=== PATIENT | male | born 1945 | race African-American/Black ===

== ENCOUNTER 2017-11-23 12:48 | Inpatient (IN) | payer MEDICARE ==
[2017-11-23] MEDS ORDERED: NORMAL SALINE 1000 ML 1,000 ML IV ONE (12:54)
[2017-11-23] MEDS ORDERED: LIDOCAINE 2% URO-JET 5 ML KIT MM ONE (12:54)
--- NOTE | 2017-11-23 12:59 | ER Document Report ---
ED General - General Stated Complaint: DIZZINESS Time Seen by Provider: 11/23/17 12:53 TRAVEL OUTSIDE OF THE [place] IN LAST 30 DAYS: No - HPI Patient complains to provider of: fever, dizzy Notes: 71-year-old male with lengthy medical history including chronic trach presents with increasing weakness fatigue fever and dizziness. Family concerned he has been coughing up a great deal of sputum as well. Patient has history of pneumonia in the past. Patient also history of urinary tract infections. Patient denies overt chest pain or abdominal pain denies nausea vomiting. Denies productive cough, positive for dysuria. - Related Data Allergies/Adverse Reactions: No Known Allergies Allergy (Unverified 06/14/15 12:22) Past Medical History - Social History Smoking Status: Unknown if Ever Smoked Family History: Reviewed & Not Pertinent - Past Medical History Cardiac Medical History: Reports: Hx Hypercholesterolemia, Hx Hypertension, Hx Pulmonary Embolism Endocrine Medical History: Reports: Hx Diabetes Mellitus Type 2 Renal/ Medical History: Reports: Hx Kidney Stones Past Surgical History: Reports: Hx Kidney (Renal Surgery), Hx Orthopedic Surgery , Hx Thyroid Surgery - thyroidectomy - Immunizations Hx Diphtheria, Pertussis, Tetanus Vaccination: Yes Hx Pneumococcal Vaccination: 03/27/13 Review of Systems - Review of Systems Notes: REVIEW OF SYSTEMS: CONSTITUTIONAL: +fevers, -chills EENT: -eye pain, -difficulty swallowing, -nasal congestion CARDIOVASCULAR: -chest pain, -syncope. RESPIRATORY: -cough, -SOB GASTROINTESTINAL: -abdominal pain, -nausea, -vomiting, -diarrhea GENITOURINARY: +dysuria, -hematuria MUSCULOSKELETAL: -back pain, -neck pain SKIN: -rash or skin lesions. HEMATOLOGIC: -easy bruising or bleeding. LYMPHATIC: -swollen, enlarged glands. NEUROLOGICAL: -altered mental status or loss of consciousness, -headache, - neurologic symptoms PSYCHIATRIC: -anxiety, -depression. ALL OTHER SYSTEMS REVIEWED AND NEGATIVE. Physical Exam - Vital signs Vitals: Temp 101.4 F H 11/23/17 12:48 - Notes Notes: PHYSICAL EXAMINATION: GENERAL: Well-appearing, well-nourished and in no acute distress. HEAD: Atraumatic, normocephalic. EYES: Pupils equal round and reactive to light, extraocular movements intact, sclera anicteric, conjunctiva are normal. ENT: nares patent, oropharynx clear without exudates. Moist mucous membranes. NECK: Normal range of motion, supple without lymphadenopathy, chronic trach in place LUNGS: Rhonchi bilateral lung pappas HEART: tachycardia without murmurs ABDOMEN: Soft, nontender, normoactive bowel sounds. No guarding, no rebound. No masses appreciated. EXTREMITIES: Normal range of motion, no pitting or edema. No cyanosis. NEUROLOGICAL: Cranial nerves grossly intact. Normal speech, normal gait. Normal sensory and motor exams. PSYCH: Normal mood, normal affect. SKIN: Warm, Dry, normal turgor, no rashes or lesions noted. Course - Re-evaluation Re-evalutation: 11/23/17 12:59 Patient given Tylenol approximately 2 hours ago. Given 1 g by fire rescue. Patient was initially febrile 102. Patient Keller UTI, leukocytosis, normal lactic acid. 11/23/17 15:20 Patient given 2 L fluid resuscitation feeling greatly improved. Patient's blood pressure stable within normal patient's urine found to be contaminated. Will be sent for urine culture. In the meantime initiate ceftriaxone therapy. Patient will be admitted to the hospital for close monitoring further management of his sepsis secondary to urinary tract infection. - Vital Signs Vital signs: Temp Pulse Resp BP Pulse Ox 101.4 F H 42 H 118/62 91 L 11/23/17 12:48 11/23/17 13:01 11/23/17 13:01 11/23/17 13:01 - Laboratory Result Diagrams: 11/23/17 13:09 11/23/17 13:09 Laboratory results interpreted by me: 11/23/17 11/23/17 11/23/17 13:09 13:09 13:09 WBC 14.8 H RBC 4.01 L Hgb 11.7 L Hct 35.1 L Seg Neuts % (Manual) 88 H Lymphocytes % (Manual) 3 L Abs Neuts (Manual) 13.0 H Abs Lymphs (Manual) 0.4 L PT 17.1 H Sodium 145.6 H Potassium 3.5 L Chloride 108 H Creatinine 1.61 H Est GFR ( Amer) 51 L Est GFR (Non-Af Amer) 43 L POC Glucose ALT 13 L Urine Protein Urine Ketones Urine Blood Urine Urobilinogen Ur Leukocyte Esterase 11/23/17 11/23/17 14:08 14:35 WBC RBC Hgb Hct Seg Neuts % (Manual) Lymphocytes % (Manual) Abs Neuts (Manual) Abs Lymphs (Manual) PT Sodium Potassium Chloride Creatinine Est GFR ( Amer) Est GFR (Non-Af Amer) POC Glucose 139 H ALT Urine Protein 100 H Urine Ketones 20 H Urine Blood MODERATE H Urine Urobilinogen 2.0 H Ur Leukocyte Esterase LARGE H Discharge - Discharge Clinical Impression: Fever Qualifiers: Fever type: unspecified Qualified Code(s): R50.9 - Fever, unspecified Sepsis Qualifiers: Sepsis type: sepsis due to unspecified organism Qualified Code(s): A41.9 - Sepsis, unspecified organism UTI (urinary tract infection) Qualifiers: Urinary tract infection type: site unspecified Hematuria presence: with hematuria Qualified Code(s): N39.0 - Urinary tract infection, site not specified ; R31.9 - Hematuria, unspecified; R31.9 - Hematuria, unspecified Condition: Stable Disposition: ADMITTED INPATIENT Admitting Provider: Hospitalist - [facility] Unit Admitted: Medical Floor Referrals: AMINATA ROMAN MD [Primary Care Provider] - Follow up as needed
[2017-11-23 13:43] LABS: HEMATOCRIT 35.1 % (37.9-51.0); HEMOGLOBIN 11.7 g/dL (13.5-17.0); MEAN CORPUSCULAR HEMOGLOBIN 29.1 pg (27.0-33.4); MEAN CORPUSCULAR HGB CONC 33.3 g/dL (32.0-36.0); MEAN CORPUSCULAR VOLUME 88 fl (80-97); PLATELET COUNT 239 10^3/uL (150-450); RED BLOOD COUNT 4.01 10^6/uL (4.35-5.55); RED CELL DISTRIBUTION WIDTH 13.9 % (11.5-14.0); VENOUS BLOOD BASE EXCESS 0.4 mmol/L; VENOUS BLOOD HCO3 25.6 mmol/L (20-32); VENOUS BLOOD PCO2 43.6 mmHg (35-63); VENOUS BLOOD PH 7.39 (7.30-7.42); WHITE BLOOD COUNT 14.8 10^3/uL (4.0-10.5)
[2017-11-23 13:47] LABS: INTERNATIONAL RATION (INR) 1.33; PROTHROMBIN TIME 17.1 SEC (11.4-15.4)
--- NOTE | 2017-11-23 14:04 | RADIOLOGY REPORT (SQ) ---
EXAM DESCRIPTION: CHEST SINGLE VIEW COMPLETED DATE/TIME: 11/23/2017 1:55 pm REASON FOR STUDY: fever COMPARISON: 10/12/2014. EXAM PARAMETERS: NUMBER OF VIEWS: One view. TECHNIQUE: Single frontal radiographic view of the chest acquired. RADIATION DOSE: NA LIMITATIONS: None. FINDINGS: LUNGS AND PLEURA: No opacities, masses or pneumothorax. Stable mild elevation of the righ t hemidiaphragm. No pleural effusion. MEDIASTINUM AND HILAR STRUCTURES: No masses. Contour normal. HEART AND VASCULAR STRUCTURES: Heart normal in size. Normal vasculature. BONES: No acute findings. HARDWARE: Tracheostomy tube. OTHER: No other significant finding. IMPRESSION: NO ACUTE RADIOGRAPHIC FINDING IN THE CHEST. TECHNICAL DOCUMENTATION: JOB ID: [id number] [employer]- All Rights Reserved Reading location - IP/workstation name: [email or web address]
[2017-11-23 14:07] LABS: ABSOLUTE LYMPHOCYTES# (MANUAL) 0.4 10^3/uL (0.5-4.7); ABSOLUTE MONOCYTES # (MANUAL) 1.3 10^3/uL (0.1-1.4); BASOPHILS % (MANUAL) 0 % (0-2); EOSINOPHILS % (MANUAL) 0 % (0-6); LYMPHOCYTES % (MANUAL) 3 % (13-45); MONOCYTES % (MANUAL) 9 % (3-13); PLATELET COMMENT ADEQUATE; RBC MORPHOLOGY COMMENT NORMO-CYTIC/CHROMIC; SEGMENTED NEUTROPHILS % (MAN) 88 % (42-78); TOTAL CELLS COUNTED 100
[2017-11-23 14:11] LABS: ALANINE AMINOTRANSFERASE 13 U/L (21-72); ALBUMIN 3.8 g/dL (3.5-5.0); ALKALINE PHOSPHATASE 85 U/L (38-126); ANION GAP 14 (5-19); ASPARTATE AMINO TRANSFERASE 27 U/L (17-59); BILIRUBIN,DIRECT 0.4 mg/dL (0.0-0.4); BLOOD UREA NITROGEN 15 mg/dL (7-20); CALCIUM 9.2 mg/dL (8.4-10.2); CARBON DIOXIDE 24 mmol/L (22-30); CHLORIDE 108 mmol/L (98-107); GLUCOSE 110 mg/dL (75-110); POTASSIUM 3.5 mmol/L (3.6-5.0); SODIUM 145.6 mmol/L (137-145); TOTAL PROTEIN 7.5 g/dL (6.3-8.2)
--- NOTE | 2017-11-23 14:17 | EKG REPORT ---
SEVERITY:- ABNORMAL ECG - SINUS RHYTHM LEFT AXIS DEVIATION ANTERIOR INFARCT, AGE INDETERMINATE NONSPECIFIC T ABNORMALITIES, INFERIOR LEADS : Confirmed by: Silver Hare MD 23-Nov-2017 14:17:00
[2017-11-23] MEDS ORDERED: CEFTRIAXONE 1 GM/D5W RTU 50 ML IV ONE ×2 (14:44→15:12)
[2017-11-23 15:10] LABS: AMORPHOUS SEDIMENT,URINE TRACE /HPF; APPEARANCE,URINE CLOUDY; BILIRUBIN,URINE NEGATIVE (NEGATIVE); COLOR,URINE AMBER; GLUCOSE, URINE NEGATIVE (NEGATIVE); KETONES,URINE 20 mg/dL (NEGATIVE); LEUKOCYTE ESTERASE,URINE LARGE (NEGATIVE); NITRITE,URINE NEGATIVE (NEGATIVE); PROTEIN,URINE 100 mg/dL (NEGATIVE)
[2017-11-23] MEDS ORDERED: CEFTRIAXONE INJ 1000 MG VIAL IV ONE ×2 (15:15→15:30)
[2017-11-23] MEDS ORDERED: ONDANSETRON HCL INJ/PF 4 MG/2 ML SDV IV PRN (15:30)
[2017-11-23] MEDS ORDERED: NORMAL SALINE 1000 ML 1,000 ML IV PRN (15:31)
[2017-11-23] MEDS ORDERED: PROMETHAZINE HCL INJ 25 MG/1 ML VIAL IV PRN (15:39)
[2017-11-23] MEDS ORDERED: MAG HYDROX/AL HYDROX/SIMETH SUSP 30 ML UDCUP PO PRN (15:39)
[2017-11-23] MEDS ORDERED: MAGNESIUM HYDROXIDE SUSP 30 ML UDCUP PO PRN (15:39)
[2017-11-23] MEDS ORDERED: LEVALBUTEROL HCL NEB 1.25 MG/3 ML AMPUL NEB PRN (16:24)
[2017-11-23] MEDS: ACETAMINOPHEN 325 MG TABLET PO PRN ×2 (18:35→23:17)
[2017-11-23] MEDS: NORMAL SALINE 1000 ML 1,000 ML IV PRN (19:02)
[2017-11-23] MEDS ORDERED: ACETAMINOPHEN 650 MG SUPP.RECT PR PRN (20:28)
--- NOTE | 2017-11-23 20:39 | PDOC H&P ---
History of Present Illness Admission Date/PCP: 11/23/17 15:20 Patient complains of: Fever History of Present Illness: ABDELRAHMAN ESPAÑA is a 71 year old male with a past medical history significant for MS, COPD, chronic tracheostomy (utilizes ventilator on SIMV when sleeping and room air otherwise), RUBINA, chronic kidney disease, atrial fibrillation, hypertension, hyperlipidemia, and DM 2 who presented to the emergency department today with a complaint of generalized malaise, increased forgetfulness/slight confusion, fever, and dysuria. Evaluation in the emergency department revealed a fever (101.4), tachycardia ( 112), tachypnea (34), normal chest x-ray, benign EKG, leukocytosis (WBCs 14.8 with bandemia), and urinalysis grossly positive for urinary tract infection. Chemistry revealed mild hypernatremia, hypokalemia, and chronic kidney disease at his baseline creatinine. He is referred to the hospitalist service for admission and management of sepsis secondary to urinary tract infection. Past Medical History Cardiac Medical History: Reports: Hyperlipidema, Hypertension, Pulmonary Embolism Pulmonary Medical History: Reports: Chronic Obstructive Pulmonary Disease (COPD) EENT Medical History: Reports: None Neurological Medical History: Reports: Multiple Sclerosis Endocrine Medical History: Reports: Diabetes Mellitus Type 2 Renal/ Medical History: Reports: Chronic Kidney Disease Malignancy Medical History: Reports: None GI Medical History: Reports: None Musculoskeltal Medical History: Reports: None Skin Medical History: Reports: None Psychiatric Medical History: Reports: None Traumatic Medical History: Reports: None Hematology: Reports: Anemia Infectious Medical History: Reports: None Past Surgical History Past Surgical History: Reports: Orthopedic Surgery, Other - Tracheostomy Social History Information Source: Patient, Relative Lives with: Family Smoking Status: Unknown if Ever Smoked Frequency of Alcohol Use: None Hx Recreational Drug Use: No Hx Prescription Drug Abuse: No - Advance Directive Resuscitation Status: Full Code Family History Family History: Reviewed & Not Pertinent Parental Family History Reviewed: Yes Children Family History Reviewed: Yes Sibling(s) Family History Reviewed.: Yes Medication/Allergy Allergies/Adverse Reactions: No Known Allergies Allergy (Unverified 06/14/15 12:22) Review of Systems Constitutional: PRESENT: chills, fatigue, fever(s). ABSENT: headache(s), weight gain, weight loss Eyes: ABSENT: visual disturbances Ears: ABSENT: hearing changes Cardiovascular: ABSENT: chest pain, dyspnea on exertion, edema, orthropnea, palpitations Respiratory: PRESENT: cough, sputum. ABSENT: hemoptysis Gastrointestinal: ABSENT: abdominal pain, constipation, diarrhea, hematemesis, hematochezia, nausea, vomiting Genitourinary: PRESENT: dysuria. ABSENT: hematuria Musculoskeletal: ABSENT: joint swelling Integumentary: ABSENT: rash, wounds Neurological: PRESENT: confusion, weakness. ABSENT: abnormal gait, abnormal speech, dizziness, focal weakness, syncope Psychiatric: ABSENT: anxiety, depression, homidical ideation, suicidal ideation Endocrine: ABSENT: cold intolerance, heat intolerance, polydipsia, polyuria Hematologic/Lymphatic: ABSENT: easy bleeding, easy bruising Physical Exam Vital Signs: Temp Pulse Resp BP Pulse Ox 102.8 F H 112 H 20 164/68 H 94 11/23/17 19:16 11/23/17 19:16 11/23/17 19:16 11/23/17 19:16 11/23/17 19:16 Intake & Output 11/22/17 11/23/17 11/24/17 06:59 06:59 06:59 Intake Total 1000 Balance 1000 Weight 84.7 kg General appearance: PRESENT: cooperative, mild distress - Acutely ill-appearing , well-developed, well-nourished - Overweight Head exam: PRESENT: atraumatic, normocephalic Eye exam: PRESENT: conjunctiva pink, EOMI, PERRLA. ABSENT: scleral icterus Ear exam: PRESENT: normal external ear exam Mouth exam: PRESENT: dry mucosa, tongue midline Teeth exam: PRESENT: poor dentation Neck exam: PRESENT: tracheostomy. ABSENT: carotid bruit, JVD, lymphadenopathy, thyromegaly Respiratory exam: PRESENT: rhonchi, symmetrical, tachypnea, other - Per patient and family; patient is at baseline respiratory status -current cough and sputum production is his norm. ABSENT: rales, wheezes Cardiovascular exam: PRESENT: RRR, +S1, +S2, tachycardia. ABSENT: diastolic murmur, rubs, systolic murmur Pulses: PRESENT: normal dorsalis pedis pul Vascular exam: PRESENT: normal capillary refill GI/Abdominal exam: PRESENT: normal bowel sounds, soft. ABSENT: distended, guarding, mass, organolmegaly, rebound, tenderness Rectal exam: PRESENT: deferred Extremities exam: PRESENT: full ROM. ABSENT: calf tenderness, clubbing, pedal edema Neurological exam: PRESENT: alert, awake, oriented to person, oriented to place , oriented to time, oriented to situation, CN II-XII grossly intact, other - Fatigued, forgetful. ABSENT: motor sensory deficit Psychiatric exam: PRESENT: appropriate affect, normal mood. ABSENT: homicidal ideation, suicidal ideation Skin exam: PRESENT: dry, intact, warm. ABSENT: cyanosis, rash Results Impressions: Chest X-Ray 11/23/17 12:55 IMPRESSION: NO ACUTE RADIOGRAPHIC FINDING IN THE CHEST. Assessment & Plan - Diagnosis (1) Sepsis Qualifiers: Sepsis type: sepsis due to unspecified organism Qualified Code(s): A41.9 - Sepsis, unspecified organism Is this a current diagnosis for this admission?: Yes Plan: Sepsis due to UTI, present on admission, evidenced by fever, tachycardia, tachypnea, report of increased forgetfulness/weakness per family, and leukocytosis. WBCs are elevated to 14.8 with bandemia. Urinalysis is grossly positive for urinary tract infection. Blood and urine cultures are pending. Chest x-ray is benign. Skin is intact. The patient is admitted to [facility] on continuous cardiac telemetry. He has received IV fluid boluses by the ED provider and is continued on maintenance fluids. He is empirically placed on IV Rocephin for urinary tract infection. Will adjust antibiotics as urine cultures result. (2) UTI (urinary tract infection) Qualifiers: Urinary tract infection type: site unspecified Hematuria presence: with hematuria Qualified Code(s): N39.0 - Urinary tract infection, site not specified; R31.9 - Hematuria, unspecified; R31.9 - Hematuria, unspecified Is this a current diagnosis for this admission?: Yes Plan: Patient presented with fever, chills, malaise, increased forgetfulness/weakness , and report of dysuria 1-2 days. Urinalysis is positive for protein, ketones, moderate blood, large leuk esterase , WBCs 146, and 3+ bacteria. Urine culture is pending. He is provided maintenance IV fluids and started on IV Rocephin. We will adjust antibiotics as culture and sensitivities result. (3) Chronic respiratory failure Is this a current diagnosis for this admission?: Yes Plan: Although the patient is tachypneic today, I believe this to be related to his fever. He does have coarse lung sounds, but these clear following cough. Chest x-ray is benign. Both the patient and family members report that he appears to be at his baseline respiratory status. Patient's family members report that the patient is ventilator dependent while sleeping. The patient's respiratory company, [employer], was contacted. They confirm that the patient uses SIMV with the following settings : Rate of 12, 500 tidal volume, 15 pressure support, 0 PEEP, oxygen 3 L/min at night only. The patient is placed on scheduled duo nebs with Xopenex as needed. His Mucomyst is continued. We will resume any additional COPD medications once fully reconciled. Ventilator is ordered nightly at the above settings. (4) COPD (chronic obstructive pulmonary disease) Is this a current diagnosis for this admission?: Yes Plan: Without exacerbation. Scheduled and as needed nebulizer treatments are provided. Supplemental oxygen will be provided as needed to maintain oxygen saturations greater than 88%. We will continue the patient's Singulair. Consider Mucinex. We will resume his remaining outpatient medications once fully reconciled. (5) Multiple sclerosis Is this a current diagnosis for this admission?: Yes Plan: Supportive care Fall precautions, every 2 hour turns. PT/OT consultations. - Time Time Spent: 50 to 70 Minutes Medications reviewed and adjusted accordingly: Yes Anticipated discharge: Home Within: within 72 hours - Inpatient Certification Based on my medical assessment, after consideration of the patient's comorbidities, presenting symptoms, or acuity I expect that the services needed warrant INPATIENT care.: Yes I certify that my determination is in accordance with my understanding of Medicare's requirements for reasonable and necessary INPATIENT services [42 CFR 412.3e].: Yes Medical Necessity: Significant Comorbidiites Make Outpatient Treatment Too Risky , Need Close Monitoring Due to Risk of Patient Decompensation, Need For IV Fluids, Need for IV Antibiotics
[2017-11-23] MEDS ORDERED: DEXTROSE 50%-WATER SYRINGE 12.5 GM/25 ML DOSE IV PRN (21:30)
[2017-11-23] MEDS ORDERED: DEXTROSE 50%-WATER SYRINGE 25 GM/50 ML DOSE IV PRN (21:30)
[2017-11-23] MEDS ORDERED: DEXTROSE 40% GEL 15 GM TUBE X 2 PO PRN (21:30)
[2017-11-23] MEDS ORDERED: INSULIN LISPRO 100 UNIT/ML 3 ML VIAL SUBCUT PRN (21:30)
[2017-11-23] MEDS ORDERED: GLUCAGON,HUMAN RECOMB 1 MG INJ IM PRN (21:30)
[2017-11-23] MEDS ORDERED: DEXTROSE 40% GEL 15 GM TUBE PO PRN (21:30)
[2017-11-23] MEDS ORDERED: LACTULOSE SYRUP 20 GM/30 ML UDCUP PO ONE (22:00)
[2017-11-23] MEDS: FAMOTIDINE 20 MG TABLET PO SCH (22:03)
[2017-11-23] MEDS: HEPARIN SOD (PORCINE) 5,000 UNIT/ML 1 ML SYRINGE SUBCUT SCH (22:04)
[2017-11-23] MEDS: IPRATROPIUM/ALBUTEROL 0.5-2.5 MG/3 ML AMPUL NEB SCH (23:55)
[2017-11-24] MEDS: NORMAL SALINE 1000 ML 1,000 ML IV PRN ×3 (03:08→18:52)
[2017-11-24] MEDS: HEPARIN SOD (PORCINE) 5,000 UNIT/ML 1 ML SYRINGE SUBCUT SCH ×2 (05:12→14:10)
[2017-11-24 06:20] LABS: ABSOLUTE BASOPHILS # (AUTO) 0.1 10^3/uL (0.0-0.2); ABSOLUTE LYMPHOCYTES (AUTO) 1.2 10^3/uL (0.5-4.7); ABSOLUTE MONOCYTES (AUTO) 1.8 10^3/uL (0.1-1.4); ABSOLUTE NEUT (AUTO) 13.6 10^3/uL (1.7-8.2); BASOPHILS % (AUTO) 0.6 % (0-2); EOSINOPHILS % (AUTO) 0.2 % (0-6); HEMATOCRIT 34.7 % (37.9-51.0); HEMOGLOBIN 11.4 g/dL (13.5-17.0); LYMPHOCYTES % (AUTO) 7.1 % (13-45); MEAN CORPUSCULAR HEMOGLOBIN 28.9 pg (27.0-33.4); MEAN CORPUSCULAR HGB CONC 32.8 g/dL (32.0-36.0); MEAN CORPUSCULAR VOLUME 88 fl (80-97); MONOCYTES % (AUTO) 10.8 % (3-13); PLATELET COUNT 217 10^3/uL (150-450); RED BLOOD COUNT 3.94 10^6/uL (4.35-5.55); RED CELL DISTRIBUTION WIDTH 13.7 % (11.5-14.0); SEGMENTED NEUTROPHILS % (AUTO) 81.3 % (42-78); TOTAL CELLS COUNTED % (AUTO) 100 %; WHITE BLOOD COUNT 16.7 10^3/uL (4.0-10.5)
[2017-11-24 06:37] LABS: ANION GAP 13 (5-19); BLOOD UREA NITROGEN 13 mg/dL (7-20); CALCIUM 8.3 mg/dL (8.4-10.2); CARBON DIOXIDE 22 mmol/L (22-30); CHLORIDE 111 mmol/L (98-107); GLUCOSE 87 mg/dL (75-110); POTASSIUM 3.4 mmol/L (3.6-5.0); SODIUM 145.7 mmol/L (137-145)
[2017-11-24] MEDS: IPRATROPIUM/ALBUTEROL 0.5-2.5 MG/3 ML AMPUL NEB SCH ×2 (08:30→16:50)
[2017-11-24] MEDS ORDERED: CLOPIDOGREL BISULFATE 75 MG TABLET PO SCH (10:00)
[2017-11-24] MEDS ORDERED: CEFTRIAXONE 1 GM/D5W RTU 50 ML IV SCH (10:00)
[2017-11-24] MEDS: ASPIRIN 81 MG TABLET, CHEWABLE PO SCH (10:48)
[2017-11-24] MEDS: FAMOTIDINE 20 MG TABLET PO SCH ×2 (10:48→21:41)
[2017-11-24] MEDS: MONTELUKAST SODIUM 10 MG TABLET PO SCH (10:48)
[2017-11-24] MEDS: DOCUSATE SODIUM 100 MG CAPSULE PO SCH (10:48)
[2017-11-24] MEDS: CEFTRIAXONE SODIUM 1,000 MG in NORMAL SALINE 50 ML IV SCH (10:48)
[2017-11-24] MEDS: ACETAMINOPHEN 325 MG TABLET PO PRN (12:38)
[2017-11-24] MEDS ORDERED: IBUPROFEN 600 MG TABLET PO PRN (14:59)
[2017-11-24] MEDS ORDERED: GUAIFENESIN SYRP 200 MG/10 ML UDC PO PRN (15:34)
--- NOTE | 2017-11-24 16:29 | PDOC PROGRESS REPORT ---
Subjective Progress Note for:: 11/24/17 Subjective:: The patient is a 71 year old male with a past medical history significant for MS , COPD, chronic tracheostomy (utilizes ventilator on SIMV when sleeping and room air otherwise), RUBINA, chronic kidney disease, atrial fibrillation, hypertension, hyperlipidemia, and DM 2 who was admitted for sepsis secondary to urinary tract infection The patient was seen on morning rounds with his family present. He is found resting in bed comfortably on room air. He tells me he is feeling much better and is hopeful to be discharged to home soon. He does endorse continued fever/ chills, but denies dizziness, headache, chest pain, palpitations, dyspnea, abdominal pain, nausea and vomiting. He continues to have a productive cough, but reports that this is his "normal." He ate breakfast well today and overall is feeling much better. He has no questions or concerns. No concerns per nursing. Reason For Visit: UTI Physical Exam Vital Signs: Temp Pulse Resp BP Pulse Ox 102.4 F H 105 H 20 148/65 H 95 11/24/17 13:26 11/24/17 14:00 11/24/17 11:27 11/24/17 11:27 11/24/17 12:23 Intake & Output 11/23/17 11/24/17 11/25/17 06:59 06:59 06:59 Intake Total 2000 1202 Output Total 300 50 Balance 1700 1152 Weight 86.3 kg General appearance: PRESENT: no acute distress, well-developed, well-nourished - overweight Head exam: PRESENT: atraumatic, normocephalic Eye exam: PRESENT: conjunctiva pink, EOMI, PERRLA. ABSENT: scleral icterus Ear exam: PRESENT: normal external ear exam Mouth exam: PRESENT: moist, tongue midline Neck exam: PRESENT: tracheostomy. ABSENT: carotid bruit, JVD, lymphadenopathy, thyromegaly Respiratory exam: PRESENT: decreased breath sounds - bibasilar, rhonchi, symmetrical, unlabored. ABSENT: rales, wheezes Cardiovascular exam: PRESENT: RRR. ABSENT: diastolic murmur, rubs, systolic murmur Pulses: PRESENT: normal dorsalis pedis pul Vascular exam: PRESENT: normal capillary refill GI/Abdominal exam: PRESENT: normal bowel sounds, soft. ABSENT: distended, guarding, mass, organolmegaly, rebound, tenderness Rectal exam: PRESENT: deferred Extremities exam: PRESENT: full ROM. ABSENT: calf tenderness, clubbing, pedal edema Neurological exam: PRESENT: alert, awake, oriented to person, oriented to place , oriented to time, oriented to situation, CN II-XII grossly intact. ABSENT: motor sensory deficit Psychiatric exam: PRESENT: appropriate affect, normal mood. ABSENT: homicidal ideation, suicidal ideation Skin exam: PRESENT: dry, intact, warm. ABSENT: cyanosis, rash Results Laboratory Results: 11/24/17 05:41 11/24/17 05:41 11/24/17 11/24/17 05:41 05:41 WBC 16.7 H RBC 3.94 L Hgb 11.4 L Hct 34.7 L MCV 88 MCH 28.9 MCHC 32.8 RDW 13.7 Plt Count 217 Seg Neutrophils % 81.3 H Lymphocytes % 7.1 L Monocytes % 10.8 Eosinophils % 0.2 Basophils % 0.6 Absolute Neutrophils 13.6 H Absolute Lymphocytes 1.2 Absolute Monocytes 1.8 H Absolute Eosinophils 0.0 Absolute Basophils 0.1 Sodium 145.7 H Potassium 3.4 L Chloride 111 H Carbon Dioxide 22 Anion Gap 13 BUN 13 Creatinine 1.55 H Est GFR ( Amer) 54 L Est GFR (Non-Af Amer) 44 L Glucose 87 Calcium 8.3 L Impressions: Chest X-Ray 11/23/17 12:55 IMPRESSION: NO ACUTE RADIOGRAPHIC FINDING IN THE CHEST. Assessment & Plan - Diagnosis (1) Sepsis Qualifiers: Sepsis type: sepsis due to unspecified organism Qualified Code(s): A41.9 - Sepsis, unspecified organism Is this a current diagnosis for this admission?: Yes Plan: Improved clinical appearance today; although leukocytosis is slightly up (14.8-- > 16.7) and patient continues to have high fevers (102.4 this afternoon). Sepsis due to UTI, present on admission, evidenced by fever, tachycardia, tachypnea, report of increased forgetfulness/weakness per family, and leukocytosis. Urinalysis is grossly positive for urinary tract infection. Blood culture has no growth at 24 hours Repeat blood cultures pending. Urine culture growing Gm negative rods. Chest x-ray is benign. Skin is intact. The patient is admitted to [facility] on continuous cardiac telemetry. He has received IV fluid boluses by the ED provider and is continued on maintenance fluids. He is empirically placed on IV Rocephin for urinary tract infection. Will adjust antibiotics as urine cultures result. Tylenol and motrin for fever. (2) UTI (urinary tract infection) Qualifiers: Urinary tract infection type: site unspecified Hematuria presence: with hematuria Qualified Code(s): N39.0 - Urinary tract infection, site not specified; R31.9 - Hematuria, unspecified; R31.9 - Hematuria, unspecified Is this a current diagnosis for this admission?: Yes Plan: Patient presented with fever, chills, malaise, increased forgetfulness/weakness , and report of dysuria 1-2 days. Urinalysis is positive for protein, ketones, moderate blood, large leuk esterase , WBCs 146, and 3+ bacteria. Urine culture has Gm negative rods. He is provided maintenance IV fluids and started on IV Rocephin. We will adjust antibiotics as culture and sensitivities result. (3) Chronic respiratory failure Is this a current diagnosis for this admission?: Yes Plan: Stable; at baseline per patient and family. Chest x-ray is benign. The patient is placed on scheduled duo nebs with Xopenex as needed. His Mucomyst is continued. We will resume any additional COPD medications once fully reconciled. Ventilator is ordered nightly at Rate of 12, 500 tidal volume, 15 pressure support, 0 PEEP, oxygen 3 L/min at night only. Settings were verified w/ patients home respiratory company. (4) COPD (chronic obstructive pulmonary disease) Is this a current diagnosis for this admission?: Yes Plan: Without exacerbation. Scheduled and as needed nebulizer treatments are provided. Supplemental oxygen will be provided as needed to maintain oxygen saturations greater than 88%. We will continue the patient's Singulair. Have added Robitussin for productive cough. We will resume his remaining outpatient medications once fully reconciled. (5) Multiple sclerosis Is this a current diagnosis for this admission?: Yes Plan: Supportive care Fall precautions, every 2 hour turns. PT/OT consultations. - Time Time Spent with patient: 15-24 minutes Medications reviewed and adjusted accordingly: Yes Anticipated discharge: Home
[2017-11-24] MEDS: APIXABAN 2.5 MG TABLET PO SCH (17:38)
[2017-11-24] MEDS: METOPROLOL TARTRATE 25 MG TABLET PO SCH (21:41)
[2017-11-25] MEDS: IPRATROPIUM/ALBUTEROL 0.5-2.5 MG/3 ML AMPUL NEB SCH ×4 (00:18→23:41)
[2017-11-25] MEDS: NORMAL SALINE 1000 ML 1,000 ML IV PRN ×2 (02:54→12:02)
[2017-11-25 05:23] LABS: HEMOGLOBIN 10.8 g/dL (13.5-17.0); MEAN CORPUSCULAR HEMOGLOBIN 29.1 pg (27.0-33.4); MEAN CORPUSCULAR HGB CONC 33.6 g/dL (32.0-36.0); MEAN CORPUSCULAR VOLUME 87 fl (80-97); PLATELET COUNT 203 10^3/uL (150-450); RED CELL DISTRIBUTION WIDTH 13.6 % (11.5-14.0); WHITE BLOOD COUNT 12.2 10^3/uL (4.0-10.5)
[2017-11-25 05:43] LABS: ANION GAP 10 (5-19); BLOOD UREA NITROGEN 11 mg/dL (7-20); CALCIUM 8.2 mg/dL (8.4-10.2); CARBON DIOXIDE 21 mmol/L (22-30); CHLORIDE 111 mmol/L (98-107); GLUCOSE 87 mg/dL (75-110); POTASSIUM 3.2 mmol/L (3.6-5.0); SODIUM 142.1 mmol/L (137-145)
[2017-11-25] MEDS: POTASSI CL 20 MEQ/50 ML RIDER 20 MEQ/50 ML RTUPB IV SCH ×2 (09:34→11:59)
[2017-11-25] MEDS: MONTELUKAST SODIUM 10 MG TABLET PO SCH (09:34)
[2017-11-25] MEDS: ASPIRIN 81 MG TABLET, CHEWABLE PO SCH (09:35)
[2017-11-25] MEDS: APIXABAN 2.5 MG TABLET PO SCH ×2 (09:35→17:32)
[2017-11-25] MEDS: CEFTRIAXONE SODIUM 1,000 MG in NORMAL SALINE 50 ML IV SCH (09:35)
[2017-11-25] MEDS: FAMOTIDINE 20 MG TABLET PO SCH ×2 (09:35→23:15)
[2017-11-25] MEDS: DOCUSATE SODIUM 100 MG CAPSULE PO SCH (09:35)
[2017-11-25] MEDS: METOPROLOL TARTRATE 25 MG TABLET PO SCH ×2 (09:35→23:15)
--- NOTE | 2017-11-25 13:57 | PDOC PROGRESS REPORT ---
Subjective Progress Note for:: 11/25/17 Subjective:: The patient is a 71 year old male with a past medical history significant for MS , COPD, chronic tracheostomy (utilizes ventilator on SIMV when sleeping and room air otherwise), RUBINA, chronic kidney disease, atrial fibrillation, hypertension, hyperlipidemia, and DM 2 who was admitted for sepsis secondary to urinary tract infection The patient was seen on morning rounds with his family present. He is found resting in bed comfortably on room air. He states that he is feeling much better today and has no new questions or concerns other than again asking if he is ready to be discharged to home. He denies fever, chills, body aches, chest pain, palpitations, dyspnea, unusual cough (does continue to have baseline productive cough), abdominal pain, nausea , and vomiting. He is asked about his PCP and pharmacy; the patient assures me that his physician is Dr. Miguel and that he uses [facility]. Nursing states they will make additional attempt today to obtain home medications for reconciliation. He has no questions or concerns. No concerns per nursing. Reason For Visit: UTI Physical Exam Vital Signs: Temp Pulse Resp BP Pulse Ox 99.1 F 97 18 133/77 H 93 11/25/17 11:08 11/25/17 11:08 11/25/17 11:08 11/25/17 11:08 11/25/17 11:08 Intake & Output 11/24/17 11/25/17 11/26/17 06:59 06:59 06:59 Intake Total 2000 4404 1200 Output Total 300 450 500 Balance 1700 3954 700 Weight 86.3 kg 89.7 kg General appearance: PRESENT: no acute distress, cooperative, well-developed, well-nourished - overweight Head exam: PRESENT: atraumatic, normocephalic Eye exam: PRESENT: conjunctiva pink, EOMI, PERRLA. ABSENT: scleral icterus Ear exam: PRESENT: normal external ear exam Mouth exam: PRESENT: moist, tongue midline Neck exam: PRESENT: tracheostomy. ABSENT: carotid bruit, JVD, lymphadenopathy, thyromegaly Respiratory exam: PRESENT: clear to auscultation deepa, decreased breath sounds - bibasilar, symmetrical, unlabored. ABSENT: rales, rhonchi, wheezes Cardiovascular exam: PRESENT: RRR, +S1, +S2. ABSENT: diastolic murmur, rubs, systolic murmur Pulses: PRESENT: normal dorsalis pedis pul Vascular exam: PRESENT: normal capillary refill GI/Abdominal exam: PRESENT: normal bowel sounds, soft. ABSENT: distended, guarding, mass, organolmegaly, rebound, tenderness Rectal exam: PRESENT: deferred Extremities exam: PRESENT: full ROM. ABSENT: calf tenderness, clubbing, pedal edema Neurological exam: PRESENT: alert, awake, oriented to person, oriented to place , oriented to time, oriented to situation, CN II-XII grossly intact. ABSENT: motor sensory deficit Psychiatric exam: PRESENT: appropriate affect, normal mood. ABSENT: homicidal ideation, suicidal ideation Skin exam: PRESENT: dry, intact, warm. ABSENT: cyanosis, rash Results Laboratory Results: 11/25/17 05:01 11/25/17 05:01 11/25/17 11/25/17 05:01 05:01 WBC 12.2 H RBC 3.70 L Hgb 10.8 L Hct 32.0 L MCV 87 MCH 29.1 MCHC 33.6 RDW 13.6 Plt Count 203 Sodium 142.1 Potassium 3.2 L Chloride 111 H Carbon Dioxide 21 L Anion Gap 10 BUN 11 Creatinine 1.35 H Est GFR ( Amer) > 60 Est GFR (Non-Af Amer) 52 L Glucose 87 Calcium 8.2 L Impressions: Chest X-Ray 11/23/17 12:55 IMPRESSION: NO ACUTE RADIOGRAPHIC FINDING IN THE CHEST. Assessment & Plan - Diagnosis (1) Sepsis Qualifiers: Sepsis type: sepsis due to unspecified organism Qualified Code(s): A41.9 - Sepsis, unspecified organism Is this a current diagnosis for this admission?: Yes Plan: Improved; WBC are trending down (14.8--> 16.7--> 12.2), fever trend appears to be improving, and patient no longer appears acutely ill. Sepsis due to UTI, present on admission, evidenced by fever, tachycardia, tachypnea, report of increased forgetfulness/weakness per family, and leukocytosis. Urinalysis is grossly positive for UTI. Blood culture has no growth at 48 hours Repeat blood cultures pending. Urine culture shows pansensitive E. coli.. Chest x-ray is benign. Skin is intact. The patient is admitted to [facility] on continuous cardiac telemetry. He has received IV fluid boluses by the ED provider and is continued on maintenance fluids. He is empirically placed on IV Rocephin for urinary tract infection; Day #2. Will consider transition to oral abx tomorrow if WBCs and fever continue to trend down. Tylenol and motrin for fever. (2) UTI (urinary tract infection) Qualifiers: Urinary tract infection type: site unspecified Hematuria presence: with hematuria Qualified Code(s): N39.0 - Urinary tract infection, site not specified; R31.9 - Hematuria, unspecified; R31.9 - Hematuria, unspecified Is this a current diagnosis for this admission?: Yes Plan: Improving. Patient presented with fever, chills, malaise, increased forgetfulness/weakness , and report of dysuria 1-2 days. Urinalysis is positive for protein, ketones, moderate blood, large leuk esterase , WBCs 146, and 3+ bacteria. Urine culture has Gm negative rods. He is provided maintenance IV fluids and started on IV Rocephin. Plan as above. (3) Chronic respiratory failure Is this a current diagnosis for this admission?: Yes Plan: Stable; at baseline per patient and family. Chest x-ray is benign. The patient is placed on scheduled duo nebs with Xopenex as needed. His Singulair is continued (correction; pt was not ordered Mucomyst). Have added Robitussin for productive cough. We will resume any additional COPD medications once fully reconciled. Ventilator is ordered nightly at Rate of 12, 500 tidal volume, 15 pressure support, 0 PEEP, oxygen 3 L/min at night only. Settings were verified w/ patients home respiratory company. (4) COPD (chronic obstructive pulmonary disease) Is this a current diagnosis for this admission?: Yes Plan: Without exacerbation. Scheduled and as needed nebulizer treatments are provided. Supplemental oxygen will be provided as needed to maintain oxygen saturations greater than 88%. We will continue the patient's Singulair. Have added Robitussin for productive cough. We will resume his remaining outpatient medications once fully reconciled. (5) Multiple sclerosis Is this a current diagnosis for this admission?: Yes Plan: Supportive care Fall precautions, every 2 hour turns. PT/OT consultations. - Time Time Spent with patient: 15-24 minutes Medications reviewed and adjusted accordingly: Yes Anticipated discharge: Home Within: within 48 hours
[2017-11-26 05:50] LABS: ANION GAP 11 (5-19); BLOOD UREA NITROGEN 10 mg/dL (7-20); CALCIUM 8.3 mg/dL (8.4-10.2); CARBON DIOXIDE 17 mmol/L (22-30); CHLORIDE 115 mmol/L (98-107); GLUCOSE 91 mg/dL (75-110); POTASSIUM 3.5 mmol/L (3.6-5.0); SODIUM 143.4 mmol/L (137-145)
[2017-11-26 05:51] LABS: HEMOGLOBIN 10.4 g/dL (13.5-17.0); MEAN CORPUSCULAR HEMOGLOBIN 28.9 pg (27.0-33.4); MEAN CORPUSCULAR HGB CONC 33.6 g/dL (32.0-36.0); MEAN CORPUSCULAR VOLUME 86 fl (80-97); PLATELET COUNT 219 10^3/uL (150-450); RED BLOOD COUNT 3.61 10^6/uL (4.35-5.55); WHITE BLOOD COUNT 9.8 10^3/uL (4.0-10.5)
[2017-11-26] MEDS: NORMAL SALINE 1000 ML 1,000 ML IV PRN ×2 (06:12→09:36)
[2017-11-26] MEDS: IPRATROPIUM/ALBUTEROL 0.5-2.5 MG/3 ML AMPUL NEB SCH (07:43)
[2017-11-26] MEDS: METOPROLOL TARTRATE 25 MG TABLET PO SCH ×2 (09:20→22:11)
[2017-11-26] MEDS: APIXABAN 2.5 MG TABLET PO SCH ×2 (09:21→17:15)
[2017-11-26] MEDS: CEFTRIAXONE SODIUM 1,000 MG in NORMAL SALINE 50 ML IV SCH (09:21)
[2017-11-26] MEDS: ASPIRIN 81 MG TABLET, CHEWABLE PO SCH (09:21)
[2017-11-26] MEDS: MONTELUKAST SODIUM 10 MG TABLET PO SCH (09:21)
[2017-11-26] MEDS: FAMOTIDINE 20 MG TABLET PO SCH ×2 (09:21→22:11)
[2017-11-26] MEDS: DOCUSATE SODIUM 100 MG CAPSULE PO SCH (09:29)
[2017-11-26] MEDS ORDERED: IBUPROFEN 600 MG TABLET PO PRN (11:09)
[2017-11-26] MEDS ORDERED: LIDOCAINE 5% (700 MG) TRANSDERMAL ADH..PATCH TP ONE (11:17)
[2017-11-26] MEDS ORDERED: IPRATROPIUM/ALBUTEROL 0.5-2.5 MG/3 ML AMPUL NEB SCH (12:31)
--- NOTE | 2017-11-26 12:47 | PDOC PROGRESS REPORT ---
Subjective Progress Note for:: 11/26/17 Subjective:: The patient is a 71 year old male with a past medical history significant for MS , COPD, chronic tracheostomy (utilizes ventilator on SIMV when sleeping and room air otherwise), RUBINA, chronic kidney disease, atrial fibrillation, hypertension, hyperlipidemia, and DM 2 who was admitted for sepsis secondary to urinary tract infection The patient was seen on morning rounds with his family present. He is found resting in bed comfortably on room air. He states that he is feeling well and continues to ask to go home. He does report occasional dysuria and is agreeable to trial of pyridium. He denies fever, chills, body aches, chest pain, palpitations, dyspnea, unusual cough (does continue to have baseline productive cough), abdominal pain, nausea , and vomiting. His family is present, unfortunately, they did not bring in his medication bottles to complete home medication reconciliation (pt's she is forgot to pass on request to the daughter who manages the patient's medications). The patient's daughter confirms patient's statements that he is a patient of Dr. Adama Miguel. She is very upset that the clinic did not fax his medication list as was requested on Monday and that Dr. Miguel reportedly did not remember Mr. Harper being a patient of his and so declined to assume care. She does request that the patient advocacy reach out to her as this is apparently happened in the past. She is informed that our patient advocate may not be available this weekend but would certainly reach out to her on Monday. They have no questions or concerns. No concerns per nursing. Reason For Visit: UTI Physical Exam Vital Signs: Temp Pulse Resp BP Pulse Ox 98.9 F 78 16 141/81 H 94 11/26/17 11:05 11/26/17 11:05 11/26/17 11:05 11/26/17 11:05 11/26/17 11:05 Intake & Output 11/25/17 11/26/17 11/27/17 06:59 06:59 06:59 Intake Total 4404 2325 675 Output Total 450 1075 100 Balance 3954 1250 575 Weight 89.7 kg 91 kg General appearance: PRESENT: no acute distress, cooperative, well-developed, well-nourished - overweight Head exam: PRESENT: atraumatic, normocephalic Eye exam: PRESENT: conjunctiva pink, EOMI, PERRLA. ABSENT: scleral icterus Ear exam: PRESENT: normal external ear exam Mouth exam: PRESENT: moist, tongue midline Neck exam: PRESENT: tracheostomy. ABSENT: carotid bruit, JVD, lymphadenopathy, thyromegaly Respiratory exam: PRESENT: decreased breath sounds - bibasilar, rhonchi, symmetrical, unlabored, other - productive cough. ABSENT: rales, wheezes Cardiovascular exam: PRESENT: RRR, +S1, +S2. ABSENT: diastolic murmur, rubs, systolic murmur Pulses: PRESENT: normal dorsalis pedis pul Vascular exam: PRESENT: normal capillary refill GI/Abdominal exam: PRESENT: normal bowel sounds, soft. ABSENT: distended, guarding, mass, organolmegaly, rebound, tenderness Rectal exam: PRESENT: deferred Extremities exam: PRESENT: full ROM. ABSENT: calf tenderness, clubbing, pedal edema Musculoskeletal exam: PRESENT: ambulatory - w/ walker Neurological exam: PRESENT: alert, awake, oriented to person, oriented to place , oriented to time, oriented to situation, CN II-XII grossly intact. ABSENT: motor sensory deficit Psychiatric exam: PRESENT: appropriate affect, normal mood. ABSENT: homicidal ideation, suicidal ideation Skin exam: PRESENT: dry, intact, warm. ABSENT: cyanosis, rash Results Laboratory Results: 11/26/17 04:52 11/26/17 04:52 11/26/17 11/26/17 04:52 04:52 WBC 9.8 RBC 3.61 L Hgb 10.4 L Hct 31.0 L MCV 86 MCH 28.9 MCHC 33.6 RDW 14.0 Plt Count 219 Sodium 143.4 Potassium 3.5 L Chloride 115 H Carbon Dioxide 17 L Anion Gap 11 BUN 10 Creatinine 1.19 Est GFR ( Amer) > 60 Est GFR (Non-Af Amer) > 60 Glucose 91 Calcium 8.3 L Impressions: Chest X-Ray 11/23/17 12:55 IMPRESSION: NO ACUTE RADIOGRAPHIC FINDING IN THE CHEST. Assessment & Plan - Diagnosis (1) Sepsis Qualifiers: Sepsis type: sepsis due to unspecified organism Qualified Code(s): A41.9 - Sepsis, unspecified organism Is this a current diagnosis for this admission?: Yes Plan: Contines to improve; leukocytosis has resolved (14.8--> 16.7--> 12.2--> 9.8), fever trend appears to be improving (afebrile x26 hours; Tmax 100.3), and patient no longer appears acutely ill. Sepsis due to UTI, present on admission, evidenced by fever, tachycardia, tachypnea, report of increased forgetfulness/weakness per family, and leukocytosis. Urinalysis is grossly positive for UTI. Blood culture has no growth at 48 hours Repeat blood cultures pending. Urine culture shows pansensitive E. coli.. Chest x-ray is benign. Skin is intact. The patient is admitted to [facility] on continuous cardiac telemetry. IV fluids are discontinued today. He is empirically placed on IV Rocephin for urinary tract infection; Day #3. Will transition to p.o. Cipro. Tylenol and motrin for fever. (2) UTI (urinary tract infection) Qualifiers: Urinary tract infection type: site unspecified Hematuria presence: with hematuria Qualified Code(s): N39.0 - Urinary tract infection, site not specified; R31.9 - Hematuria, unspecified; R31.9 - Hematuria, unspecified Is this a current diagnosis for this admission?: Yes Plan: Improving. Patient presented with fever, chills, malaise, increased forgetfulness/weakness , and report of dysuria 1-2 days. Urinalysis is positive for protein, ketones, moderate blood, large leuk esterase , WBCs 146, and 3+ bacteria. Urine culture has Gm negative rods. He is provided maintenance IV fluids and started on IV Rocephin. We will repeat urinalysis and consider transition to p.o. Cipro today if improved/resolved. Pyridium for pain. Plan as above. (3) Chronic respiratory failure Is this a current diagnosis for this admission?: Yes Plan: Stable; at baseline per patient and family. Chest x-ray is benign. The patient is placed on scheduled duo nebs with Xopenex as needed. His Singulair is continued (correction; pt was not ordered Mucomyst). Have added Robitussin for productive cough. We will resume any additional COPD medications once fully reconciled. Ventilator is ordered nightly at Rate of 12, tidal volume 500, pressure support 15, 0 PEEP, oxygen 3 L/min at night only. Settings were verified w/ patients home respiratory company. (4) COPD (chronic obstructive pulmonary disease) Is this a current diagnosis for this admission?: Yes Plan: Without exacerbation. Scheduled and as needed nebulizer treatments are provided. Supplemental oxygen will be provided as needed to maintain oxygen saturations greater than 88%. We will continue the patient's Singulair. Continue Robitussin for productive cough. We will resume his remaining outpatient medications once fully reconciled. (5) Multiple sclerosis Is this a current diagnosis for this admission?: Yes Plan: Supportive care Fall precautions, every 2 hour turns. PT/OT consultations. - Time Time Spent with patient: 15-24 minutes Medications reviewed and adjusted accordingly: Yes Anticipated discharge: Home Within: within 24 hours
[2017-11-26] MEDS ORDERED: POTASSIUM CHLORIDE 10 MEQ CAPSULE.ER PO ONE (13:00)
[2017-11-26] MEDS ORDERED: PHENAZOPYRIDINE HCL 100 MG TABLET PO SCH (14:00)
[2017-11-26 15:47] LABS: APPEARANCE,URINE CLEAR; BILIRUBIN,URINE NEGATIVE (NEGATIVE); COLOR,URINE YELLOW; GLUCOSE, URINE NEGATIVE (NEGATIVE); KETONES,URINE NEGATIVE (NEGATIVE); LEUKOCYTE ESTERASE,URINE TRACE (NEGATIVE); NITRITE,URINE NEGATIVE (NEGATIVE); PROTEIN,URINE 30 mg/dL (NEGATIVE); URINE SPECIFIC GRAVITY 1.016; UROBILINOGEN,URINE NEGATIVE mg/dL (<2.0)
[2017-11-26] MEDS: ACETAMINOPHEN 325 MG TABLET PO PRN (16:03)
[2017-11-26] MEDS ORDERED: FUROSEMIDE 20 MG TABLET PO ONE (16:49)
[2017-11-26] MEDS ORDERED: CIPROFLOXACIN HCL 500 MG TABLET ONE (21:52)
[2017-11-26] MEDS: CIPROFLOXACIN HCL 500 MG TABLET PO SCH (22:11)
[2017-11-27] MEDS: ACETAMINOPHEN 325 MG TABLET PO PRN (01:34)
[2017-11-27 04:57] LABS: HEMATOCRIT 30.7 % (37.9-51.0); HEMOGLOBIN 10.3 g/dL (13.5-17.0); MEAN CORPUSCULAR HEMOGLOBIN 29.2 pg (27.0-33.4); MEAN CORPUSCULAR HGB CONC 33.7 g/dL (32.0-36.0); MEAN CORPUSCULAR VOLUME 87 fl (80-97); PLATELET COUNT 217 10^3/uL (150-450); RED BLOOD COUNT 3.54 10^6/uL (4.35-5.55); RED CELL DISTRIBUTION WIDTH 13.9 % (11.5-14.0); WHITE BLOOD COUNT 9.4 10^3/uL (4.0-10.5)
[2017-11-27 05:17] LABS: ANION GAP 13 (5-19); BLOOD UREA NITROGEN 11 mg/dL (7-20); CALCIUM 8.6 mg/dL (8.4-10.2); CARBON DIOXIDE 18 mmol/L (22-30); CHLORIDE 113 mmol/L (98-107); GLUCOSE 80 mg/dL (75-110); POTASSIUM 3.7 mmol/L (3.6-5.0); SODIUM 143.7 mmol/L (137-145)
[2017-11-27 08:21] VITALS: BP 149/78
[2017-11-27] MEDS: CIPROFLOXACIN HCL 500 MG TABLET PO SCH (09:34)
[2017-11-27] MEDS: METOPROLOL TARTRATE 25 MG TABLET PO SCH (09:35)
[2017-11-27] MEDS: MONTELUKAST SODIUM 10 MG TABLET PO SCH (09:35)
[2017-11-27] MEDS: DOCUSATE SODIUM 100 MG CAPSULE PO SCH (09:35)
[2017-11-27] MEDS: APIXABAN 2.5 MG TABLET PO SCH (09:35)
[2017-11-27] MEDS: ASPIRIN 81 MG TABLET, CHEWABLE PO SCH (09:35)
[2017-11-27] MEDS: FAMOTIDINE 20 MG TABLET PO SCH (09:35)
[2017-11-27] MEDS ORDERED: LIDOCAINE 5% (700 MG) TRANSDERMAL ADH..PATCH TP SCH (10:00)
--- NOTE | 2017-11-29 22:49 | PDOC DISCHARGE SUMMARY ---
General - Admit/Disc Date/PCP Admission Date/Primary Care Provider: 11/23/17 15:20 Dr. Dennis Miguel Discharge Date: 11/27/17 - Discharge Diagnosis (1) Sepsis Is this a current diagnosis for this admission?: Yes Summary: Resolved. Sepsis due to UTI, present on admission, evidenced by fever, tachycardia, tachypnea, report of increased forgetfulness/weakness per family, and leukocytosis. Urinalysis is grossly positive for UTI. Final Blood culture are negative. Repeat blood cultures are also negative. Urine culture shows pansensitive E. coli. Chest x-ray is benign. Skin is intact. The patient was admitted to [facility] on continuous cardiac telemetry. He received IVF for hydration and was empirically placed on IV Rocephin for urinary tract infection; he received 4 doses and was then transitioned to p.o. Cipro. He was advised on the possibility of prostatitis, but declined exam. He was provided a prescription for an additional 10 days of p.o. Cipro, for a total of 2 weeks of appropriate coverage. He was encourged to complete his antibiotic course, drink plenty of water, and to follow up with his primary care provider within 1 week. He was discharged in stable condition to home in the care of his family members with arrangements for home health nursing. (2) UTI (urinary tract infection) Is this a current diagnosis for this admission?: Yes Summary: As above. (3) Chronic respiratory failure Is this a current diagnosis for this admission?: Yes Summary: Stable and without exacerbation. (4) COPD (chronic obstructive pulmonary disease) Is this a current diagnosis for this admission?: Yes Summary: Stable and without exacerbation. (5) Multiple sclerosis Is this a current diagnosis for this admission?: Yes Summary: Stable. - Additional Information Resuscitation Status: Full Code Discharge Diet: Cardiac, Diabetic Discharge Activity: Activity As Tolerated, Balance Activity w/Rest Prescriptions: Ciprofloxacin HCl [Cipro 500 mg Tablet] 500 mg PO Q12 #20 tablet Home Medications: Metoprolol Tartrate [Lopressor 25 mg Tablet] 12.5 mg PO Q12 11/23/17 Acetaminophen [Tylenol 325 mg Tablet] 650 mg PO Q4HP PRN tablet 11/27/17 Apixaban [Eliquis 2.5 mg Tablet] 2.5 mg PO BID tablet 11/27/17 Aspirin [Aspirin 81 mg Chewable Tablet] 81 mg PO DAILY tab.chew 11/27/17 Ciprofloxacin HCl [Cipro 500 mg Tablet] 500 mg PO Q12 #20 tablet 11/27/17 Docusate Sodium [Colace 100 mg Capsule] 100 mg PO DAILY capsule 11/27/17 Montelukast Sodium [Singulair 10 mg Tablet] 10 mg PO DAILY tablet 11/27/17 History of Present Illness History of Present Illness: ABDELRAHMAN ESPAÑA is a 71 year old male with a past medical history significant for MS, COPD, chronic tracheostomy (utilizes ventilator on SIMV when sleeping and room air otherwise), RUBINA, chronic kidney disease, atrial fibrillation, hypertension, hyperlipidemia, and DM 2 who presented to the emergency department today with a complaint of generalized malaise, increased forgetfulness/slight confusion, fever, and dysuria. Evaluation in the emergency department revealed a fever (101.4), tachycardia ( 112), tachypnea (34), normal chest x-ray, benign EKG, leukocytosis (WBCs 14.8 with bandemia), and urinalysis grossly positive for urinary tract infection. Chemistry revealed mild hypernatremia, hypokalemia, and chronic kidney disease at his baseline creatinine. He is referred to the hospitalist service for admission and management of sepsis secondary to urinary tract infection. Physical Exam Vital Signs: Temp Pulse Resp BP Pulse Ox 97.9 F 86 16 149/78 H 95 11/27/17 08:20 11/27/17 08:49 11/27/17 08:49 11/27/17 08:20 11/27/17 08:49 General appearance: PRESENT: no acute distress, cooperative, well-developed, well-nourished - Overweight Head exam: PRESENT: atraumatic, normocephalic Eye exam: PRESENT: conjunctiva pink, EOMI, PERRLA. ABSENT: scleral icterus Ear exam: PRESENT: normal external ear exam Mouth exam: PRESENT: moist, tongue midline Neck exam: PRESENT: tracheostomy. ABSENT: carotid bruit, JVD, lymphadenopathy, thyromegaly Respiratory exam: PRESENT: decreased breath sounds - Bibasilar, rhonchi - Improves following cough, symmetrical, unlabored. ABSENT: rales, wheezes Cardiovascular exam: PRESENT: RRR, +S1, +S2. ABSENT: diastolic murmur, rubs, systolic murmur Pulses: PRESENT: normal dorsalis pedis pul Vascular exam: PRESENT: normal capillary refill GI/Abdominal exam: PRESENT: normal bowel sounds, soft. ABSENT: distended, guarding, mass, organolmegaly, rebound, tenderness Rectal exam: PRESENT: deferred Extremities exam: PRESENT: full ROM. ABSENT: calf tenderness, clubbing, pedal edema Neurological exam: PRESENT: alert, awake, oriented to person, oriented to place , oriented to time, oriented to situation, CN II-XII grossly intact. ABSENT: motor sensory deficit Psychiatric exam: PRESENT: appropriate affect, normal mood. ABSENT: homicidal ideation, suicidal ideation Skin exam: PRESENT: dry, intact, warm. ABSENT: cyanosis, rash Results Laboratory Results: 11/27/17 04:28 11/27/17 04:28 11/24/17 18:30 Blood Blood Culture - Final NO GROWTH IN 5 DAYS 11/24/17 17:37 Blood Blood Culture - Final NO GROWTH IN 5 DAYS Impressions: Chest X-Ray 11/23/17 12:55 IMPRESSION: NO ACUTE RADIOGRAPHIC FINDING IN THE CHEST. Qualifiers - * PATIENT BEING DISCHARGED WITH ANY OF THE FOLLOWING DIAGNOSIS: No Plan Discharge Plan: Discharge to home with home health nursing. To follow up with his Primary Care Provider within 1 week. Return to the Emergency Department as needed for concerning symptoms. Time Spent: Less than 30 Minutes
== END 2017-11-27 10:03 | disposition home or self-care (01) | DRG 872 ==
LOC: ER 12:48 → EH 15:20 → 3S 19:04
PROVIDERS: ADMIT Internal Medicine; ATTEND Internal Medicine
DX: A41.9 Sepsis, unspecified organism (principal); N39.0 Urinary tract infection, site not specified; B96.20 Unspecified Escherichia coli [E. coli] as the cause of diseases classified elsewhere; E87.0 Hyperosmolality and hypernatremia; J96.10 Chronic respiratory failure, unspecified whether with hypoxia or hypercapnia; Z99.11 Dependence on respirator [ventilator] status; E87.6 Hypokalemia; J44.9 Chronic obstructive pulmonary disease, unspecified; I12.9 Hypertensive chronic kidney disease with stage 1 through stage 4 chronic kidney disease, or unspecified chronic kidney disease; E11.22 Type 2 diabetes mellitus with diabetic chronic kidney disease; N18.9 Chronic kidney disease, unspecified; I48.91 Unspecified atrial fibrillation; G35 Multiple sclerosis; G47.33 Obstructive sleep apnea (adult) (pediatric); E78.5 Hyperlipidemia, unspecified; Z79.82 Long term (current) use of aspirin; Z79.899 Other long term (current) drug therapy; Z93.0 Tracheostomy status; Z86.711 Personal history of pulmonary embolism
CPT/HCPCS: 36415; 71045; 80048; 80053; 81001; 82803; 82962; 83605; 85025; 85027; 85610; 87040; 87086; 87088; 87186; 93005; 93010; 94002; 94003; 94640; 99285; J0696; J1644; J3480; J3490; J7030; J7620

== ENCOUNTER → 2018-09-05 | Outpatient (CLI) | payer MEDICARE ==
--- NOTE | 2018-09-05 12:18 | RADIOLOGY REPORT (SQ) ---
EXAM DESCRIPTION: CT SOFT TISSUE NECK WITH COMPLETED DATE/TIME: 09/05/2018 11:04 am REASON FOR STUDY: THYROID GOITER (E04.9) E04.9 NONTOXIC GOITER, UNSPECIFIED COMPARISON: 06/14/2015 TECHNIQUE: Post IV contrasted scanning from skull base through lung apices with review of bone, soft tissue and lung windows. Reconstructed coronal and sagittal MPR images reviewed. All images stored on PACS. All CT scanners at this facility use dose modulation, iterative reconstruction, and/or weight based d osing when appropriate to reduce radiation dose to as low as reasonably achievable (ALARA). [facility]: Dose Right [facility]: CareDose [facility]: Dose Right [facility]: Teradose 4D [facility]: [email or web address] CONTRAST TYPE AND DOSE: contrast/concentration: Isovue 350.00 mg/ml; Total Contrast Delivered: 75.0 ml; Total Saline Delivered: 55.0 ml RENAL FUNCTION: Creatinine 1.3 RADIATION DOSE: CT Rad equipment meets quality standard of care and radiation dose reduction techniq ues were employed. CTDIvol: 13.1 mGy. DLP: 429 mGy-cm. . LIMITATIONS: None. FINDINGS: SKULL BASE: Intact. MAJOR SALIVARY GLANDS: No solid or cystic masses. No inflammatory changes. LYMPHADENOPATHY: New left supraclavicular adenopathy, the largest 1.4 x 2.2 cm. Enlarged AP window n odes, largest 2.1 x 2.2 cm. MUCOSAL MASSES OR ASYMMETRY: No mucosal masses or asymmetry. LARYNX/CORDS: No abnormal findings. VASCULAR STRUCTURES: The major vessels are patent. LUNG APICES: Substernal left thyroid nodule previously 4.4 x 4.2 cm, now 4.8 x 4.9 cm. BONES: Intact. THYROID: See above. PARANASAL SINUSES: Chronic mucosal thickening. OTHER: Unchanged position of tracheostomy. IMPRESSION: Increase in size of left substernal thyroid nodule. Ipsilateral supraclavicular and AP window adenopathy. TECHNICAL DOCUMENTATION: JOB ID: [id number] Quality ID # [id number]: Final reports with documentation of one or more dose reduction techniques (e.g., Au tomated exposure control, adjustment of the mA and/or kV according to patient size, use of iterative reconstruction technique) 2010 [employer]- All Rights Reserved Reading location - IP/workstation name: [email or web address]
== END ==
LOC: RAD 10:24
PROVIDERS: ATTEND Otolaryngology
DX: E04.9 Nontoxic goiter, unspecified (principal)
CPT/HCPCS: 70491; 82565

== ENCOUNTER → 2018-09-21 | Outpatient (CLI) | payer MEDICARE ==
--- NOTE | 2018-09-21 12:26 | RADIOLOGY REPORT (SQ) ---
EXAM DESCRIPTION: CHEST 2 VIEWS COMPLETED DATE/TIME: 09/21/2018 11:56 am REASON FOR STUDY: R05 COUGH COMPARISON: Chest films 11/23/2017, 10/12/2014, 09/08/2014 EXAM PARAMETERS: NUMBER OF VIEWS: two views TECHNIQUE: Digital Frontal and Lateral radiographic views of the chest acquired. RADIATION DOSE: NA LIMITATIONS: none FINDINGS: LUNGS AND PLEURA: No opacities, masses or pneumothorax. No pleural effusion. MEDIASTINUM AND HILAR STRUCTURES: No masses or contour abnormalities. HEART AND VASCULAR STRUCTURES: Heart normal size. No evidence for failure. BONES: No acute findings. HARDWARE: Tracheostomy tube tip in the upper trachea, in good positioning. OTHER: No other significant finding. IMPRESSION: NO ACUTE RADIOGRAPHIC FINDING IN THE CHEST. TECHNICAL DOCUMENTATION: JOB ID: [id number] [employer]- All Rights Reserved Reading location - IP/workstation name: [email or web address]
== END ==
LOC: RAD 11:38
PROVIDERS: ATTEND Family Medicine
DX: R05 Cough (principal)
CPT/HCPCS: 71046

== ENCOUNTER 2018-10-07 21:18 | Inpatient (IN) | payer MEDICARE ==
[2018-10-07 22:49] LABS: ABSOLUTE BASOPHILS # (AUTO) 0.1 10^3/uL (0.0-0.2); ABSOLUTE EOSINOPHILS # (AUTO) 0.2 10^3/uL (0.0-0.6); ABSOLUTE LYMPHOCYTES (AUTO) 0.8 10^3/uL (0.5-4.7); ABSOLUTE MONOCYTES (AUTO) 1.2 10^3/uL (0.1-1.4); ABSOLUTE NEUT (AUTO) 13.4 10^3/uL (1.7-8.2); BASOPHILS % (AUTO) 0.6 % (0-2); EOSINOPHILS % (AUTO) 1.5 % (0-6); HEMATOCRIT 34.9 % (37.9-51.0); HEMOGLOBIN 11.4 g/dL (13.5-17.0); LYMPHOCYTES % (AUTO) 5.2 % (13-45); MEAN CORPUSCULAR HEMOGLOBIN 28.3 pg (27.0-33.4); MEAN CORPUSCULAR HGB CONC 32.6 g/dL (32.0-36.0); MEAN CORPUSCULAR VOLUME 87 fl (80-97); MONOCYTES % (AUTO) 7.9 % (3-13); PLATELET COUNT 297 10^3/uL (150-450); RED BLOOD COUNT 4.02 10^6/uL (4.35-5.55); RED CELL DISTRIBUTION WIDTH 14.3 % (11.5-14.0); SEGMENTED NEUTROPHILS % (AUTO) 84.8 % (42-78); TOTAL CELLS COUNTED % (AUTO) 100 %; WHITE BLOOD COUNT 15.8 10^3/uL (4.0-10.5)
--- NOTE | 2018-10-07 22:59 | RADIOLOGY REPORT (SQ) ---
EXAM DESCRIPTION: XR CHEST 1 VIEW COMPLETED DATE/TME: 10/07/2018 21:31 CLINICAL HISTORY: 72 years, Male, SOB COMPARISON: 09/21/2018 chest NUMBER OF VIEWS: 2 TECHNIQUE: AP views of the chest LIMITATIONS: None. FINDINGS: The heart size is normal. Airspace opacity right lung base suspicious for pneumonia. Osteopenia. Tracheostomy tube in place. Underlying COPD IMPRESSION: Findings suspicious for right basilar pneumonia copyright 2010 [employer]- All Rights Reserved
[2018-10-07 23:07] LABS: INTERNATIONAL RATION (INR) 1.21; PROTHROMBIN TIME 15.3 SEC (11.4-15.4)
[2018-10-07 23:09] LABS: ALANINE AMINOTRANSFERASE 18 U/L (21-72); ALBUMIN 3.7 g/dL (3.5-5.0); ALKALINE PHOSPHATASE 84 U/L (38-126); ANION GAP 11 (5-19); ASPARTATE AMINO TRANSFERASE 16 U/L (17-59); BILIRUBIN,DIRECT 0.3 mg/dL (0.0-0.4); BILIRUBIN,TOTAL 0.7 mg/dL (0.2-1.3); BLOOD UREA NITROGEN 17 mg/dL (7-20); CALCIUM 9.6 mg/dL (8.4-10.2); CARBON DIOXIDE 27 mmol/L (22-30); CHLORIDE 108 mmol/L (98-107); GLUCOSE 101 mg/dL (75-110); POTASSIUM 3.8 mmol/L (3.6-5.0); SODIUM 145.5 mmol/L (137-145); TOTAL PROTEIN 7.6 g/dL (6.3-8.2)
[2018-10-08 00:24] LABS: VENOUS BLOOD BASE EXCESS -2.6 mmol/L; VENOUS BLOOD HCO3 22.6 mmol/L (20-32); VENOUS BLOOD PCO2 41.1 mmHg (35-63); VENOUS BLOOD PH 7.36 (7.30-7.42)
[2018-10-08] MEDS ORDERED: AZITHROMYCIN INJ 500 MG VIAL IV ONE (01:10)
[2018-10-08] MEDS ORDERED: PIPERACILLIN/TAZOBACTAM 4.5 GM VIAL IV ONE (01:10)
[2018-10-08] MEDS ORDERED: MORPHINE SULFATE 10 MG/ML INJ IV ONE (01:12)
[2018-10-08] MEDS ORDERED: ONDANSETRON HCL INJ/PF 4 MG/2 ML SDV IV ONE (01:13)
--- NOTE | 2018-10-08 01:16 | ER Document Report ---
ED Respiratory Problem - General Chief Complaint: Breathing Difficulty Stated Complaint: SHORTNESS OF BREATH Time Seen by Provider: 10/07/18 21:53 Mode of Arrival: Stretcher Information source: Patient, Relative TRAVEL OUTSIDE OF THE [place] IN LAST 30 DAYS: No - HPI Patient complains to provider of: Cough, Short of breath Onset: Yesterday Duration: Continuous Initiating Event: Other - Pneumonia. Quality of pain: Dull Severity: Mild Pain Level: 2 Short of Breath: Mild Chest pain/discomfort: Constant Cough: Productive Sputum amount: Copious Sputum color: Creamy Sputum consistency: Frothy Associated symptoms: Congestion, Cough Similar symptoms previously: Yes Recently seen / treated by doctor: No - Related Data Allergies/Adverse Reactions: No Known Allergies Allergy (Unverified 06/14/15 12:22) Past Medical History - General Information source: Relative - Social History Smoking Status: Never Smoker Chew tobacco use (# tins/day): No Frequency of alcohol use: None Drug Abuse: None Family History: Reviewed & Not Pertinent Patient has suicidal ideation: No Patient has homicidal ideation: No - Past Medical History Cardiac Medical History: Reports: Hx Hypercholesterolemia, Hx Hypertension, Hx Pulmonary Embolism Pulmonary Medical History: Reports: Hx COPD Endocrine Medical History: Reports: Hx Diabetes Mellitus Type 2 Renal/ Medical History: Reports: Hx Kidney Stones. Denies: Hx Peritoneal Dialysis Past Surgical History: Reports: Hx Kidney (Renal Surgery), Hx Orthopedic Surgery, Hx Thyroid Surgery - thyroidectomy, Other - Tracheostomy - Immunizations Hx Diphtheria, Pertussis, Tetanus Vaccination: Yes Hx Pneumococcal Vaccination: 03/27/13 Review of Systems - Review of Systems Constitutional: No symptoms reported EENT: No symptoms reported Cardiovascular: No symptoms reported Respiratory: Cough, Short of breath Gastrointestinal: No symptoms reported Genitourinary: No symptoms reported Male Genitourinary: No symptoms reported Musculoskeletal: No symptoms reported Skin: No symptoms reported Hematologic/Lymphatic: No symptoms reported Neurological/Psychological: No symptoms reported -: Yes All other systems reviewed and negative Physical Exam - Vital signs Vitals: Temp Resp 99.8 F 22 H 10/07/18 21:33 10/07/18 21:33 Interpretation: Normal - General General appearance: Appears well, Alert In distress: None - HEENT Head: Normocephalic, Atraumatic Eyes: Normal Pupils: PERRL Neck: Other - Tracheostomy. - Respiratory Respiratory status: No respiratory distress Chest status: Nontender Breath sounds: Rhonchi - Right lower lobe. Chest palpation: Normal - Cardiovascular Rhythm: Regular Heart sounds: Normal auscultation Murmur: No - Abdominal Inspection: Normal Distension: No distension Bowel sounds: Normal Tenderness: Nontender Organomegaly: No organomegaly - Back Back: Normal, Nontender - Extremities General upper extremity: Normal inspection, Nontender, Normal color, Normal ROM, Normal temperature General lower extremity: Normal inspection, Nontender, Normal color, Normal ROM, Normal temperature, Normal weight bearing. No: Stepan's sign - Neurological Neuro grossly intact: Yes Cognition: Normal Orientation: AAOx4 Xochitl Coma Scale Eye Opening: Spontaneous Xochitl Coma Scale Verbal: Oriented Ovid Coma Scale Motor: Obeys Commands Xochitl Coma Scale Total: 15 Speech: Normal Motor strength normal: LUE, RUE, LLE, RLE Sensory: Normal - Psychological Associated symptoms: Normal affect, Normal mood - Skin Skin Temperature: Warm Skin Moisture: Dry Skin Color: Normal Course - Re-evaluation Re-evalutation: 10/08/18 03:55 Discussed patient lab results and chest x-ray with the patient and his family. I also informed the patient and the family the patient will be admitted to the hospital for further management. - Vital Signs Vital signs: Temp Pulse Resp BP Pulse Ox 99.4 F 26 H 153/69 H 97 10/07/18 23:29 10/07/18 23:29 10/07/18 23:29 10/08/18 02:32 - Laboratory Result Diagrams: 10/07/18 22:38 10/07/18 22:38 Laboratory results interpreted by me: 10/07/18 10/07/18 10/07/18 22:38 22:38 22:38 WBC 15.8 H RBC 4.02 L Hgb 11.4 L Hct 34.9 L RDW 14.3 H Seg Neutrophils % 84.8 H Lymphocytes % 5.2 L Absolute Neutrophils 13.4 H Sodium 145.5 H Chloride 108 H Creatinine 1.49 H Est GFR ( Amer) 56 L Est GFR (Non-Af Amer) 46 L AST 16 L ALT 18 L Creatine Kinase 43 L - Diagnostic Test Radiology reviewed: Reports reviewed - EKG Interpretation by Me EKG shows normal: Sinus rhythm Rate: Tachycardia When compared to previous EKG there are: Previous EKG unavailable Additional EKG results interpreted by me: 10/08/18 01:20 EKG shows sinus tachycardia rate of 103. No STEMI. Nonspecific T wave changes. - Transfer of Care Notes: 10/08/18 03:[address] Malin who is on-call for Dr. Miguel. Will admit patient to the hospital for further evaluation and management. Discharge - Discharge Clinical Impression: Dehydration, mild, ADRIENNE (acute kidney injury) Right lower lobe pneumonia Qualifiers: Pneumonia type: due to unspecified organism Qualified Code(s): J18.1 - Lobar pneumonia, unspecified organism Condition: Stable Disposition: ADMITTED INPATIENT Admitting Provider: Dea Unit Admitted: [facility]
[2018-10-08] MEDS ORDERED: NORMAL SALINE 1000 ML 1,000 ML IV ONE (01:18)
[2018-10-08] MEDS ORDERED: AZITHROMYCIN INJ 500 MG VIAL IV PRN (01:48)
[2018-10-08] MEDS ORDERED: AZITHROMYCIN 500 MG in DEXTROSE 5%-WATER 250 ML IV ONE (02:00)
[2018-10-08] MEDS ORDERED: IPRATROPIUM/ALBUTEROL 0.5-2.5 MG/3 ML AMPUL NEB ONE (02:00)
[2018-10-08] MEDS: NORMAL SALINE 1000 ML 1,000 ML IV PRN ×2 (03:26→19:48)
[2018-10-08] MEDS ORDERED: CEFTRIAXONE 1 GM/D5W RTU 1 GM/50 ML RTUPB IV SCH (06:00)
[2018-10-08 06:06] LABS: APPEARANCE,URINE CLEAR; BILIRUBIN,URINE NEGATIVE (NEGATIVE); COLOR,URINE YELLOW; GLUCOSE, URINE NEGATIVE (NEGATIVE); KETONES,URINE TRACE mg/dL (NEGATIVE); LEUKOCYTE ESTERASE,URINE NEGATIVE (NEGATIVE); NITRITE,URINE NEGATIVE (NEGATIVE); PROTEIN,URINE NEGATIVE (NEGATIVE); URINE SPECIFIC GRAVITY 1.018; UROBILINOGEN,URINE NEGATIVE mg/dL (<2.0)
[2018-10-08] MEDS: ENOXAPARIN SODIUM INJ 40 MG/0.4 ML DISP.SYRIN SUBCUT SCH (10:40)
[2018-10-08] MEDS ORDERED: ACETAMINOPHEN 325 MG TABLET PO PRN ×2 (11:50→12:28)
--- NOTE | 2018-10-08 19:44 | PDOC H&P ---
History of Present Illness Admission Date/PCP: 10/08/18 01:45 AMINATA ROMAN MD History of Present Illness: ABDELRAHMAN ESPAÑA is a 72 year old male, He has a history of chronic respiratory failure with chronic tracheostomy tube on ventilator at night, multiple sclerosis. He came to the emergency room for evaluation of shortness of breath chest x-ray demonstrated airspace opacity in the right lung base, There was associated leukocytosis.History taking was a challenge from this patient,He has a lot of secretion from the tracheostomy Past Medical History Cardiac Medical History: Reports: Hyperlipidema, Hypertension, Pulmonary Embolism Pulmonary Medical History: Reports: Chronic Obstructive Pulmonary Disease (COPD) Neurological Medical History: Reports: Multiple Sclerosis Endocrine Medical History: Reports: Diabetes Mellitus Type 2 Hematology: Reports: Anemia Past Surgical History Past Surgical History: Reports: Orthopedic Surgery, Other - Tracheostomy Social History Smoking Status: Never Smoker Frequency of Alcohol Use: None Hx Recreational Drug Use: No Drugs: None Hx Prescription Drug Abuse: No Family History Family History: Reviewed & Not Pertinent Parental Family History Reviewed: Yes Children Family History Reviewed: Yes Sibling(s) Family History Reviewed.: Yes Medication/Allergy Home Medications: Albuterol Sulfate [Ventolin 0.083% Neb 2.5 mg/3 mL Ampul] 2.5 mg NEB Q6HP PRN 10/08/18 Clopidogrel Bisulfate [Plavix 75 mg Tablet] 75 mg PO DAILY 10/08/18 Methimazole [Northyx] 10 mg PO DAILY 10/08/18 Metoprolol Tartrate [Lopressor 25 mg Tablet] 12.5 mg PO Q12 10/08/18 Allergies/Adverse Reactions: No Known Allergies Allergy (Unverified 06/14/15 12:22) Review of Systems ROS unobtainable: Other - He has tracheostomy in place, he has no speaking valve Constitutional: ABSENT: chills, fever(s), headache(s), weight gain, weight loss Eyes: ABSENT: visual disturbances Ears: ABSENT: hearing changes Cardiovascular: ABSENT: chest pain, dyspnea on exertion, edema, orthropnea, palpitations Respiratory: PRESENT: cough, dyspnea, sputum Gastrointestinal: ABSENT: abdominal pain, constipation, diarrhea, hematemesis, hematochezia, nausea, vomiting Genitourinary: ABSENT: dysuria, hematuria Musculoskeletal: ABSENT: joint swelling Integumentary: ABSENT: rash, wounds Neurological: ABSENT: abnormal gait, abnormal speech, confusion, dizziness, focal weakness, syncope Psychiatric: ABSENT: anxiety, depression, homidical ideation, suicidal ideation Endocrine: ABSENT: cold intolerance, heat intolerance, menstrual abnormalities, polydipsia, polyuria Hematologic/Lymphatic: ABSENT: easy bleeding, easy bruising, lymphadenopathy Physical Exam Vital Signs: Temp Pulse Resp BP Pulse Ox 98.7 F 71 17 137/61 H 96 10/08/18 15:25 10/08/18 15:25 10/08/18 15:25 10/08/18 15:25 10/08/18 18:20 Pulse Oximeter Continuous Start: 10/08/18 01:33 Freq: RTQ4 Status: Active Protocol: Document 10/08/18 16:50 JDR (Rec: 10/08/18 16:53 JDR [id number]) Pulse Oximetry Assessment Oxygen Saturation (92-100) 99 Oxygen Delivery Method Mechanical Ventilator Fraction of Inspired Oxygen (FIO2) 40 Equipment Usage Equipment in Use Continuous SpO2 Machine # 2 Intake & Output 10/07/18 10/08/18 10/09/18 06:59 06:59 06:59 Intake Total 1050 120 Output Total 50 Balance 1050 70 Weight 68.7 kg Head exam: PRESENT: atraumatic, normocephalic Eye exam: PRESENT: PERRLA Ear exam: PRESENT: normal external ear exam Mouth exam: PRESENT: moist, tongue midline Neck exam: PRESENT: tracheostomy Respiratory exam: PRESENT: rhonchi Cardiovascular exam: PRESENT: +S1, +S2 Pulses: PRESENT: normal dorsalis pedis pul, +2 pedal pulses bilateral Vascular exam: PRESENT: normal capillary refill GI/Abdominal exam: PRESENT: soft Rectal exam: PRESENT: deferred Neurological exam: PRESENT: alert Psychiatric exam: PRESENT: appropriate affect, normal mood. ABSENT: homicidal ideation, suicidal ideation Skin exam: PRESENT: dry, intact, warm. ABSENT: cyanosis, rash Results Laboratory Results: 10/07/18 22:38 10/07/18 22:38 10/07/18 10/07/18 10/07/18 22:38 22:38 22:38 WBC 15.8 H RBC 4.02 L Hgb 11.4 L Hct 34.9 L MCV 87 MCH 28.3 MCHC 32.6 RDW 14.3 H Plt Count 297 Seg Neutrophils % 84.8 H Lymphocytes % 5.2 L Monocytes % 7.9 Eosinophils % 1.5 Basophils % 0.6 Absolute Neutrophils 13.4 H Absolute Lymphocytes 0.8 Absolute Monocytes 1.2 Absolute Eosinophils 0.2 Absolute Basophils 0.1 VBG pH VBG pCO2 VBG HCO3 VBG Base Excess Sodium 145.5 H Potassium 3.8 Chloride 108 H Carbon Dioxide 27 Anion Gap 11 BUN 17 Creatinine 1.49 H Est GFR ( Amer) 56 L Est GFR (Non-Af Amer) 46 L Glucose 101 Lactic Acid 1.0 Calcium 9.6 Total Bilirubin 0.7 AST 16 L ALT 18 L Alkaline Phosphatase 84 Total Protein 7.6 Albumin 3.7 Urine Color Urine Appearance Urine pH Ur Specific Archer Urine Protein Urine Glucose (UA) Urine Ketones Urine Blood Urine Nitrite Ur Leukocyte Esterase Urine WBC (Auto) Urine RBC (Auto) 10/08/18 10/08/18 00:04 05:15 WBC RBC Hgb Hct MCV MCH MCHC RDW Plt Count Seg Neutrophils % Lymphocytes % Monocytes % Eosinophils % Basophils % Absolute Neutrophils Absolute Lymphocytes Absolute Monocytes Absolute Eosinophils Absolute Basophils VBG pH 7.36 VBG pCO2 41.1 VBG HCO3 22.6 VBG Base Excess -2.6 Sodium Potassium Chloride Carbon Dioxide Anion Gap BUN Creatinine Est GFR ( Amer) Est GFR (Non-Af Amer) Glucose Lactic Acid Calcium Total Bilirubin AST ALT Alkaline Phosphatase Total Protein Albumin Urine Color YELLOW Urine Appearance CLEAR Urine pH 5.0 Ur Specific Archer 1.018 Urine Protein NEGATIVE Urine Glucose (UA) NEGATIVE Urine Ketones TRACE H Urine Blood NEGATIVE Urine Nitrite NEGATIVE Ur Leukocyte Esterase NEGATIVE Urine WBC (Auto) 6 Urine RBC (Auto) 2 10/07/18 10/07/18 10/07/18 22:38 22:38 22:38 Creatine Kinase 43 L CK-MB (CK-2) 0.36 Troponin I < 0.012 Cancelled 10/08/18 03:14 Creatine Kinase CK-MB (CK-2) Troponin I < 0.012 Impressions: Chest X-Ray 10/07/18 21:31 IMPRESSION: Findings suspicious for right basilar pneumonia copyright 2011 [employer]- All Rights Reserved Assessment & Plan - Diagnosis (1) Acute hypoxemic respiratory failure Is this a current diagnosis for this admission?: Yes Plan: Patient vent dependent, Initially vent setting ordered (2) Pneumonia Qualifiers: Pneumonia type: due to unspecified organism Laterality: unspecified laterality Lung location: unspecified part of lung Qualified Code(s): J18.9 - Pneumonia, unspecified organism Is this a current diagnosis for this admission?: Yes Plan: Start IV antibiotic to cover community acquired pathogens (3) Chronic respiratory failure Qualifiers: Respiratory failure complication: unspecified whether with hypoxia or hypercapnia Qualified Code(s): J96.10 - Chronic respiratory failure, unspecified whether with hypoxia or hypercapnia Is this a current diagnosis for this admission?: Yes Plan: Patient vent dependent (4) COPD (chronic obstructive pulmonary disease) Qualifiers: COPD type: unspecified COPD Qualified Code(s): J44.9 - Chronic obstructive pulmonary disease, unspecified Is this a current diagnosis for this admission?: Yes (5) Multiple sclerosis Is this a current diagnosis for this admission?: Yes
[2018-10-08] MEDS: AZITHROMYCIN 500 MG in DEXTROSE 5%-WATER 250 ML IV SCH (21:05)
[2018-10-08] MEDS: METOPROLOL TARTRATE 25 MG TABLET PO SCH (21:05)
[2018-10-08 21:34] LABS: ARTERIAL BLOOD BASE EXCESS -2.1 mmol/L; ARTERIAL BLOOD H2CO3 1.08 mmol/L (1.05-1.35); ARTERIAL BLOOD HCO3 22.2 mmol/L (20-24); ARTERIAL BLOOD O2 SATURATION 95.2 % (94-98); ARTERIAL BLOOD PH 7.41 (7.35-7.45); ARTERIAL BLOOD PO2 74.9 mmHg (80-100); ARTERIAL BLOOD TOTAL CO2 23.3 mmol/L (23-27)
[2018-10-08 21:39] LABS: ARTERIAL BLOOD FIO2 10L
[2018-10-09] MEDS: CEFTRIAXONE SODIUM 1,000 MG in DEXTROSE 5%-WATER 50 ML IV SCH (05:39)
[2018-10-09 06:04] LABS: ABSOLUTE EOSINOPHILS # (AUTO) 0.3 10^3/uL (0.0-0.6); ABSOLUTE LYMPHOCYTES (AUTO) 1.1 10^3/uL (0.5-4.7); ABSOLUTE NEUT (AUTO) 8.5 10^3/uL (1.7-8.2); BASOPHILS % (AUTO) 0.4 % (0-2); EOSINOPHILS % (AUTO) 2.9 % (0-6); HEMATOCRIT 29.5 % (37.9-51.0); HEMOGLOBIN 9.9 g/dL (13.5-17.0); LYMPHOCYTES % (AUTO) 10.4 % (13-45); MEAN CORPUSCULAR HEMOGLOBIN 28.8 pg (27.0-33.4); MEAN CORPUSCULAR HGB CONC 33.4 g/dL (32.0-36.0); MEAN CORPUSCULAR VOLUME 86 fl (80-97); MONOCYTES % (AUTO) 9.3 % (3-13); PLATELET COUNT 217 10^3/uL (150-450); RED BLOOD COUNT 3.43 10^6/uL (4.35-5.55); RED CELL DISTRIBUTION WIDTH 14.4 % (11.5-14.0); TOTAL CELLS COUNTED % (AUTO) 100 %
[2018-10-09 06:12] LABS: ANION GAP 9 (5-19); BLOOD UREA NITROGEN 13 mg/dL (7-20); CALCIUM 8.8 mg/dL (8.4-10.2); CARBON DIOXIDE 19 mmol/L (22-30); CHLORIDE 113 mmol/L (98-107); POTASSIUM 3.2 mmol/L (3.6-5.0); SODIUM 141.3 mmol/L (137-145)
[2018-10-09 06:20] LABS: GLUCOSE 68 mg/dL (75-110)
[2018-10-09] MEDS: METOPROLOL TARTRATE 25 MG TABLET PO SCH ×2 (09:40→22:04)
[2018-10-09] MEDS: ENOXAPARIN SODIUM INJ 40 MG/0.4 ML DISP.SYRIN SUBCUT SCH (09:40)
[2018-10-09] MEDS: METHIMAZOLE 5 MG TABLET PO SCH (09:41)
[2018-10-09] MEDS ORDERED: METHIMAZOLE 10 MG PO SCH (10:00)
--- NOTE | 2018-10-09 19:05 | EKG REPORT ---
SEVERITY:- ABNORMAL ECG - SINUS TACHYCARDIA CONSIDER ANTEROSEPTAL INFARCT BORDERLINE T WAVE ABNORMALITIES : Confirmed by: Silver Hare MD 09-Oct-2018 19:03:56
[2018-10-09] MEDS: NORMAL SALINE 1000 ML 1,000 ML IV PRN (22:03)
[2018-10-09] MEDS: AZITHROMYCIN 500 MG in DEXTROSE 5%-WATER 250 ML IV SCH (22:03)
--- NOTE | 2018-10-09 22:26 | PDOC PROGRESS REPORT ---
Subjective Progress Note for:: 10/09/18 Subjective:: Patient seen by the bedside, he has a lot of secretion from the tracheostomy Reason For Visit: PNEUOMONIA, TRACHEOSTOMY Physical Exam Vital Signs: Temp Pulse Resp BP Pulse Ox 99.2 F 71 15 122/64 98 10/09/18 19:27 10/09/18 19:27 10/09/18 19:27 10/09/18 19:27 10/09/18 20:25 Pulse Oximeter Continuous Start: 10/08/18 01:33 Freq: RTQ4 Status: Active Protocol: Document 10/09/18 20:25 [facility] (Rec: 10/09/18 22:19 [facility] [id number]) Pulse Oximetry Assessment Oxygen Saturation (92-100) 98 Oxygen Delivery Method Mechanical Ventilator Fraction of Inspired Oxygen (FIO2) 30 Equipment Usage Equipment in Use Continuous SpO2 Machine # 2 Intake & Output 10/08/18 10/09/18 10/10/18 06:59 06:59 06:59 Intake Total 1050 1370 1530 Output Total 400 500 Balance 2342 421 5382 Weight 68.7 kg 68.7 kg General appearance: PRESENT: thin Eye exam: PRESENT: PERRLA Neck exam: PRESENT: tracheostomy Respiratory exam: PRESENT: rhonchi Cardiovascular exam: PRESENT: +S1, +S2 GI/Abdominal exam: PRESENT: soft Neurological exam: PRESENT: alert Results Laboratory Results: 10/09/18 05:32 10/09/18 05:32 10/09/18 10/09/18 05:32 05:32 WBC 11.0 H RBC 3.43 L Hgb 9.9 L Hct 29.5 L MCV 86 MCH 28.8 MCHC 33.4 RDW 14.4 H Plt Count 217 Seg Neutrophils % 77.0 Lymphocytes % 10.4 L Monocytes % 9.3 Eosinophils % 2.9 Basophils % 0.4 Absolute Neutrophils 8.5 H Absolute Lymphocytes 1.1 Absolute Monocytes 1.0 Absolute Eosinophils 0.3 Absolute Basophils 0.0 Sodium 141.3 Potassium 3.2 L Chloride 113 H Carbon Dioxide 19 L Anion Gap 9 BUN 13 Creatinine 1.15 Est GFR ( Amer) > 60 Est GFR (Non-Af Amer) > 60 Glucose 68 L Calcium 8.8 10/07/18 10/07/18 10/07/18 22:38 22:38 22:38 Creatine Kinase 43 L CK-MB (CK-2) 0.36 Troponin I < 0.012 Cancelled 10/08/18 03:14 Creatine Kinase CK-MB (CK-2) Troponin I < 0.012 Impressions: Chest X-Ray 10/07/18 21:31 IMPRESSION: Findings suspicious for right basilar pneumonia copyright 2011 [employer]- All Rights Reserved Assessment & Plan - Diagnosis (1) Acute hypoxemic respiratory failure Is this a current diagnosis for this admission?: Yes Plan: Continue vent support (2) Pneumonia Qualifiers: Pneumonia type: due to unspecified organism Laterality: unspecified laterality Lung location: unspecified part of lung Qualified Code(s): J18.9 - Pneumonia, unspecified organism Is this a current diagnosis for this admission?: Yes Plan: Continue IV antibiotic (3) Chronic respiratory failure Qualifiers: Respiratory failure complication: unspecified whether with hypoxia or hypercapnia Qualified Code(s): J96.10 - Chronic respiratory failure, unspecified whether with hypoxia or hypercapnia Is this a current diagnosis for this admission?: Yes (4) COPD (chronic obstructive pulmonary disease) Qualifiers: COPD type: unspecified COPD Qualified Code(s): J44.9 - Chronic obstructive pulmonary disease, unspecified Is this a current diagnosis for this admission?: Yes (5) Multiple sclerosis Is this a current diagnosis for this admission?: Yes
[2018-10-10 05:11] LABS: ABSOLUTE EOSINOPHILS # (AUTO) 0.3 10^3/uL (0.0-0.6); ABSOLUTE LYMPHOCYTES (AUTO) 1.2 10^3/uL (0.5-4.7); ABSOLUTE MONOCYTES (AUTO) 0.9 10^3/uL (0.1-1.4); BASOPHILS % (AUTO) 0.3 % (0-2); EOSINOPHILS % (AUTO) 3.9 % (0-6); HEMATOCRIT 29.3 % (37.9-51.0); HEMOGLOBIN 9.8 g/dL (13.5-17.0); LYMPHOCYTES % (AUTO) 16.7 % (13-45); MEAN CORPUSCULAR HEMOGLOBIN 28.7 pg (27.0-33.4); MEAN CORPUSCULAR HGB CONC 33.3 g/dL (32.0-36.0); MEAN CORPUSCULAR VOLUME 86 fl (80-97); MONOCYTES % (AUTO) 12.3 % (3-13); PLATELET COUNT 219 10^3/uL (150-450); RED BLOOD COUNT 3.41 10^6/uL (4.35-5.55); RED CELL DISTRIBUTION WIDTH 14.4 % (11.5-14.0); SEGMENTED NEUTROPHILS % (AUTO) 66.8 % (42-78); TOTAL CELLS COUNTED % (AUTO) 100 %; WHITE BLOOD COUNT 7.4 10^3/uL (4.0-10.5)
[2018-10-10 05:32] LABS: ANION GAP 8 (5-19); BLOOD UREA NITROGEN 11 mg/dL (7-20); CALCIUM 8.8 mg/dL (8.4-10.2); CARBON DIOXIDE 21 mmol/L (22-30); CHLORIDE 112 mmol/L (98-107); GLUCOSE 76 mg/dL (75-110); SODIUM 140.9 mmol/L (137-145)
[2018-10-10] MEDS: CEFTRIAXONE SODIUM 1,000 MG in DEXTROSE 5%-WATER 50 ML IV SCH (05:41)
[2018-10-10] MEDS ORDERED: POTASSIUM CHLORIDE 20 MEQ PACKET PO ONE (06:45)
[2018-10-10] MEDS: METOPROLOL TARTRATE 25 MG TABLET PO SCH ×2 (09:48→21:27)
[2018-10-10] MEDS: ENOXAPARIN SODIUM INJ 40 MG/0.4 ML DISP.SYRIN SUBCUT SCH (09:49)
[2018-10-10] MEDS: METHIMAZOLE 5 MG TABLET PO SCH (09:50)
--- NOTE | 2018-10-10 11:00 | PDOC PROGRESS REPORT ---
Subjective Progress Note for:: 10/10/18 Subjective:: Patient is currently doing fair Patient was admitted for the pneumonia chronic respiratory failure Patient is currently on a tracheostomy and required a vented nights Patient is denied any chest pain to than any shortness of the breath Patient's potassium was low this morning Reason For Visit: PNEUOMONIA, TRACHEOSTOMY Physical Exam Vital Signs: Temp Pulse Resp BP Pulse Ox 98.5 F 83 20 148/74 H 97 10/10/18 08:13 10/10/18 08:13 10/10/18 08:13 10/10/18 08:13 10/10/18 10:00 Pulse Oximeter Continuous Start: 10/08/18 01:3 3 Freq: RTQ4 Status: Active Protocol: Document 10/10/18 10:00 [facility] (Rec: 10/10/18 10:03 [facility] [id number]) Pulse Oximetry Assessment Oxygen Saturation (92-100) 97 Oxygen Flow Rate (L/min) 8 Oxygen Delivery Method Trach Collar Fraction of Inspired Oxygen (FIO2) 35 Equipment Usage Equipment in Use Continuous SpO2 Machine # 2 Intake & Output 10/09/18 10/10/18 10/11/18 06:59 06:59 06:59 Intake Total 1370 1830 Output Total 400 1040 Balance 970 790 Weight 68.7 kg 68.7 kg General appearance: PRESENT: no acute distress, well-developed, well-nourished Head exam: PRESENT: atraumatic, normocephalic Eye exam: PRESENT: conjunctiva pink, EOMI, PERRLA. ABSENT: scleral icterus Ear exam: PRESENT: normal external ear exam Mouth exam: PRESENT: moist, tongue midline Neck exam: PRESENT: full ROM, tracheostomy. ABSENT: carotid bruit, JVD, lymphadenopathy, thyromegaly Respiratory exam: PRESENT: decreased breath sounds Cardiovascular exam: PRESENT: RRR. ABSENT: diastolic murmur, rubs, systolic murmur Vascular exam: PRESENT: normal capillary refill GI/Abdominal exam: PRESENT: normal bowel sounds, soft. ABSENT: distended, guarding, mass, organolmegaly, rebound, tenderness Rectal exam: PRESENT: deferred Neurological exam: PRESENT: alert, awake, oriented to person, oriented to place, oriented to time, oriented to situation. ABSENT: motor sensory deficit Psychiatric exam: PRESENT: appropriate affect, normal mood. ABSENT: homicidal ideation, suicidal ideation Skin exam: PRESENT: dry, intact, warm. ABSENT: cyanosis, rash Results Laboratory Results: 10/10/18 04:47 10/10/18 04:47 10/10/18 10/10/18 04:47 04:47 WBC 7.4 RBC 3.41 L Hgb 9.8 L Hct 29.3 L MCV 86 MCH 28.7 MCHC 33.3 RDW 14.4 H Plt Count 219 Seg Neutrophils % 66.8 Lymphocytes % 16.7 Monocytes % 12.3 Eosinophils % 3.9 Basophils % 0.3 Absolute Neutrophils 5.0 Absolute Lymphocytes 1.2 Absolute Monocytes 0.9 Absolute Eosinophils 0.3 Absolute Basophils 0.0 Sodium 140.9 Potassium 3.0 L* Chloride 112 H Carbon Dioxide 21 L Anion Gap 8 BUN 11 Creatinine 1.07 Est GFR ( Amer) > 60 Est GFR (Non-Af Amer) > 60 Glucose 76 Calcium 8.8 10/07/18 10/07/18 10/07/18 22:38 22:38 22:38 Creatine Kinase 43 L CK-MB (CK-2) 0.36 Troponin I < 0.012 Cancelled 10/08/18 03:14 Creatine Kinase CK-MB (CK-2) Troponin I < 0.012 Impressions: Chest X-Ray 10/07/18 21:31 IMPRESSION: Findings suspicious for right basilar pneumonia copyright 2011 [employer]- All Rights Reserved Assessment & Plan - Diagnosis (1) Acute hypoxemic respiratory failure Is this a current diagnosis for this admission?: Yes Plan: Continues to went Consult the pulmonary aspects of the Dr. Davila's for further evaluate (2) Dehydration, mild Is this a current diagnosis for this admission?: Yes Plan: Continues IV fluid (3) Pneumonia Qualifiers: Pneumonia type: due to unspecified organism Laterality: unspecified laterality Lung location: unspecified part of lung Qualified Code(s): J18.9 - Pneumonia, unspecified organism Is this a current diagnosis for this admission?: Yes Plan: Continues to IV antibiotic (4) COPD (chronic obstructive pulmonary disease) Qualifiers: COPD type: unspecified COPD Qualified Code(s): J44.9 - Chronic obstructive pulmonary disease, unspecified Is this a current diagnosis for this admission?: Yes Plan: cont nebu treatments (5) Multiple sclerosis Is this a current diagnosis for this admission?: Yes - Time Time Spent with patient: 15-24 minutes Medications reviewed and adjusted accordingly: Yes Anticipated discharge: Home with Homehealth Within: Other - Plan Summary Plan Summary: rey miller
[2018-10-10 11:50] LABS: ARTERIAL BLOOD BASE EXCESS -1.1 mmol/L; ARTERIAL BLOOD FIO2 8L; ARTERIAL BLOOD H2CO3 1.38 mmol/L (1.05-1.35); ARTERIAL BLOOD HCO3 24.7 mmol/L (20-24); ARTERIAL BLOOD O2 SATURATION 97.4 % (94-98); ARTERIAL BLOOD PH 7.35 (7.35-7.45); ARTERIAL BLOOD PO2 101.9 mmHg (80-100); ARTERIAL BLOOD TOTAL CO2 26.1 mmol/L (23-27)
[2018-10-10] MEDS: AZITHROMYCIN 500 MG in DEXTROSE 5%-WATER 250 ML IV SCH (21:28)
[2018-10-11] MEDS ORDERED: NORMAL SALINE 1000 ML 1,000 ML IV PRN (04:39)
[2018-10-11] MEDS: CEFTRIAXONE SODIUM 1,000 MG in DEXTROSE 5%-WATER 50 ML IV SCH (06:17)
[2018-10-11 06:49] LABS: ABSOLUTE EOSINOPHILS # (AUTO) 0.3 10^3/uL (0.0-0.6); ABSOLUTE LYMPHOCYTES (AUTO) 1.3 10^3/uL (0.5-4.7); ABSOLUTE MONOCYTES (AUTO) 0.9 10^3/uL (0.1-1.4); ABSOLUTE NEUT (AUTO) 4.9 10^3/uL (1.7-8.2); BASOPHILS % (AUTO) 0.4 % (0-2); EOSINOPHILS % (AUTO) 4.7 % (0-6); HEMATOCRIT 30.8 % (37.9-51.0); HEMOGLOBIN 10.3 g/dL (13.5-17.0); LYMPHOCYTES % (AUTO) 17.3 % (13-45); MEAN CORPUSCULAR HEMOGLOBIN 28.6 pg (27.0-33.4); MEAN CORPUSCULAR HGB CONC 33.4 g/dL (32.0-36.0); MEAN CORPUSCULAR VOLUME 86 fl (80-97); MONOCYTES % (AUTO) 11.7 % (3-13); PLATELET COUNT 239 10^3/uL (150-450); RED BLOOD COUNT 3.59 10^6/uL (4.35-5.55); RED CELL DISTRIBUTION WIDTH 14.3 % (11.5-14.0); SEGMENTED NEUTROPHILS % (AUTO) 65.9 % (42-78); TOTAL CELLS COUNTED % (AUTO) 100 %; WHITE BLOOD COUNT 7.4 10^3/uL (4.0-10.5)
[2018-10-11 07:09] LABS: ANION GAP 9 (5-19); BLOOD UREA NITROGEN 9 mg/dL (7-20); CALCIUM 8.9 mg/dL (8.4-10.2); CARBON DIOXIDE 22 mmol/L (22-30); CHLORIDE 111 mmol/L (98-107); POTASSIUM 3.3 mmol/L (3.6-5.0)
[2018-10-11 07:13] LABS: GLUCOSE 68 mg/dL (75-110)
[2018-10-11] MEDS ORDERED: POTASSIUM CHLORIDE 20 MEQ PACKET PO ONE (08:30)
--- NOTE | 2018-10-11 08:32 | PDOC PROGRESS REPORT ---
Subjective Progress Note for:: 10/11/18 Subjective:: Patient is currently doing fair Patient was admitted for the pneumonia chronic respiratory failure Patient is currently on a tracheostomy and required a vented nights Patient is denied any chest pain to than any shortness of the breath Patient's potassium was low this morning Reason For Visit: PNEUOMONIA, TRACHEOSTOMY Physical Exam Vital Signs: Temp Pulse Resp BP Pulse Ox 98.8 F 64 15 130/59 H 100 10/11/18 03:32 10/11/18 03:32 10/11/18 03:32 10/11/18 03:32 10/11/18 04:26 Pulse Oximeter Continuous Start: 10/08/18 01: 33 Freq: RTQ4 Status: Active Protocol: Document 10/11/18 04:26 DBE (Rec: 10/11/18 04:31 DBE [id number]) Pulse Oximetry Assessment Oxygen Saturation (92-100) 100 Oxygen Delivery Method Mechanical Ventilator Fraction of Inspired Oxygen (FIO2) 30 Equipment Usage Equipment in Use Continuous SpO2 Machine # 2 Intake & Output 10/10/18 10/11/18 10/12/18 06:59 06:59 06:59 Intake Total 1830 670 Output Total 1040 500 Balance 790 170 Weight 68.7 kg 72.9 kg General appearance: PRESENT: no acute distress, well-developed, well-nourished Head exam: PRESENT: atraumatic, normocephalic Eye exam: PRESENT: conjunctiva pink, EOMI, PERRLA. ABSENT: scleral icterus Ear exam: PRESENT: normal external ear exam Mouth exam: PRESENT: moist, tongue midline Neck exam: PRESENT: full ROM. ABSENT: carotid bruit, JVD, lymphadenopathy, thyromegaly Respiratory exam: PRESENT: decreased breath sounds Cardiovascular exam: PRESENT: RRR. ABSENT: diastolic murmur, rubs, systolic murmur Vascular exam: PRESENT: normal capillary refill GI/Abdominal exam: PRESENT: normal bowel sounds, soft. ABSENT: distended, guarding, mass, organolmegaly, rebound, tenderness Rectal exam: PRESENT: deferred Extremities exam: ABSENT: pedal edema Neurological exam: PRESENT: alert, awake, oriented to person, oriented to place, oriented to time, oriented to situation. ABSENT: motor sensory deficit Psychiatric exam: PRESENT: appropriate affect, normal mood. ABSENT: homicidal ideation, suicidal ideation Skin exam: PRESENT: dry, intact, warm. ABSENT: cyanosis, rash Results Laboratory Results: 10/11/18 05:44 10/11/18 05:44 10/10/18 10/11/18 10/11/18 11:35 05:44 05:44 WBC 7.4 RBC 3.59 L Hgb 10.3 L Hct 30.8 L MCV 86 MCH 28.6 MCHC 33.4 RDW 14.3 H Plt Count 239 Seg Neutrophils % 65.9 Lymphocytes % 17.3 Monocytes % 11.7 Eosinophils % 4.7 Basophils % 0.4 Absolute Neutrophils 4.9 Absolute Lymphocytes 1.3 Absolute Monocytes 0.9 Absolute Eosinophils 0.3 Absolute Basophils 0.0 Carbonic Acid 1.38 H HCO3/H2CO3 Ratio 17:1 ABG pH 7.35 ABG pCO2 46.0 H ABG pO2 101.9 H ABG HCO3 24.7 H ABG O2 Saturation 97.4 ABG Base Excess -1.1 FiO2 8L Sodium 142.0 Potassium 3.3 L Chloride 111 H Carbon Dioxide 22 Anion Gap 9 BUN 9 Creatinine 0.98 Est GFR ( Amer) > 60 Est GFR (Non-Af Amer) > 60 Glucose 68 L Calcium 8.9 10/08/18 05:15 Clean Catch Midstream Urine Culture - Final C.albicans/C.dubliniensis 10/07/18 10/07/18 10/07/18 22:38 22:38 22:38 Creatine Kinase 43 L CK-MB (CK-2) 0.36 Troponin I < 0.012 Cancelled 10/08/18 03:14 Creatine Kinase CK-MB (CK-2) Troponin I < 0.012 Assessment & Plan - Diagnosis (1) Acute hypoxemic respiratory failure Is this a current diagnosis for this admission?: Yes Plan: Continues to current medications be consult the pulmonary for further vent management (2) Dehydration, mild Is this a current diagnosis for this admission?: Yes Plan: Continues IV fluid (3) Pneumonia Qualifiers: Pneumonia type: due to unspecified organism Laterality: unspecified laterality Lung location: unspecified part of lung Qualified Code(s): J18.9 - Pneumonia, unspecified organism Is this a current diagnosis for this admission?: Yes Plan: Continues to IV antibiotic (4) COPD (chronic obstructive pulmonary disease) Qualifiers: COPD type: unspecified COPD Qualified Code(s): J44.9 - Chronic obstructive pulmonary disease, unspecified Is this a current diagnosis for this admission?: Yes Plan: cont nebu treatments (5) Multiple sclerosis Is this a current diagnosis for this admission?: Yes - Time Time Spent with patient: 15-24 minutes Medications reviewed and adjusted accordingly: Yes Anticipated discharge: Home with Homehealth Within: Other - Plan Summary Plan Summary: Continues to current medications
[2018-10-11] MEDS: METOPROLOL TARTRATE 25 MG TABLET PO SCH ×2 (09:28→22:11)
[2018-10-11] MEDS: METHIMAZOLE 5 MG TABLET PO SCH (09:29)
[2018-10-11] MEDS: ENOXAPARIN SODIUM INJ 40 MG/0.4 ML DISP.SYRIN SUBCUT SCH (09:29)
[2018-10-11 09:39] LABS: ARTERIAL BLOOD BASE EXCESS -2.7 mmol/L; ARTERIAL BLOOD H2CO3 1.33 mmol/L (1.05-1.35); ARTERIAL BLOOD HCO3 23.1 mmol/L (20-24); ARTERIAL BLOOD O2 SATURATION 91.6 % (94-98); ARTERIAL BLOOD PCO2 44.2 mmHg (35-45); ARTERIAL BLOOD PH 7.34 (7.35-7.45); ARTERIAL BLOOD PO2 65.3 mmHg (80-100); ARTERIAL BLOOD TOTAL CO2 24.5 mmol/L (23-27)
[2018-10-11 09:40] LABS: ARTERIAL BLOOD FIO2 35%
--- NOTE | 2018-10-11 10:13 | RADIOLOGY REPORT (SQ) ---
EXAM DESCRIPTION: CHEST SINGLE VIEW COMPLETED DATE/TIME: 10/11/2018 8:37 am REASON FOR STUDY: pnemonia COMPARISON: Chest films 10/07/2018, 09/21/2018, 11/23/2017 EXAM PARAMETERS: NUMBER OF VIEWS: One view. TECHNIQUE: Single frontal radiographic view of the chest acquired. RADIATION DOSE: NA LIMITATIONS: None. FINDINGS: LUNGS AND PLEURA: No opacities, masses or pneumothorax. No pleural effusion. MEDIASTINUM AND HILAR STRUCTURES: No masses. Contour normal. HEART AND VASCULAR STRUCTURES: Heart normal in size. Normal vasculature. BONES: No acute findings. HARDWARE: None in the chest. OTHER: No other significant finding. IMPRESSION: NO ACUTE RADIOGRAPHIC FINDING IN THE CHEST. TECHNICAL DOCUMENTATION: JOB ID: [id number] [employer]- All Rights Reserved Reading location - IP/workstation name: [email or web address]
[2018-10-11] MEDS: LEVALBUTEROL HCL NEB 1.25 MG/3 ML AMPUL NEB SCH ×4 (11:00→20:33)
[2018-10-11] MEDS: AZITHROMYCIN 500 MG in DEXTROSE 5%-WATER 250 ML IV SCH (22:11)
[2018-10-12] MEDS: LEVALBUTEROL HCL NEB 1.25 MG/3 ML AMPUL NEB SCH ×3 (00:28→08:29)
[2018-10-12] MEDS: CEFTRIAXONE SODIUM 1,000 MG in DEXTROSE 5%-WATER 50 ML IV SCH (05:27)
[2018-10-12 07:11] LABS: ANION GAP 8 (5-19); BLOOD UREA NITROGEN 7 mg/dL (7-20); CALCIUM 9.1 mg/dL (8.4-10.2); CARBON DIOXIDE 23 mmol/L (22-30); CHLORIDE 111 mmol/L (98-107); GLUCOSE 91 mg/dL (75-110); POTASSIUM 3.5 mmol/L (3.6-5.0); SODIUM 141.9 mmol/L (137-145)
[2018-10-12] MEDS ORDERED: POTASSIUM CHLORIDE 20 MEQ PACKET PO ONE (07:14)
[2018-10-12] MEDS: METOPROLOL TARTRATE 25 MG TABLET PO SCH (09:14)
[2018-10-12] MEDS: METHIMAZOLE 5 MG TABLET PO SCH (09:15)
[2018-10-12] MEDS: ENOXAPARIN SODIUM INJ 40 MG/0.4 ML DISP.SYRIN SUBCUT SCH (09:15)
[2018-10-12 11:10] VITALS: BP 130/63
--- NOTE | 2018-10-12 13:27 | PDOC DISCHARGE SUMMARY ---
General - Admit/Disc Date/PCP Admission Date/Primary Care Provider: 10/08/18 01:45 AMINATA ROMAN MD Discharge Date: 10/12/18 - Discharge Diagnosis (1) Acute hypoxemic respiratory failure Is this a current diagnosis for this admission?: Yes Summary: Currently all stable Continues to vent management and follow with the pulmonary (2) Dehydration, mild Is this a current diagnosis for this admission?: Yes Summary: Currently all resolved (3) Pneumonia Is this a current diagnosis for this admission?: Yes Summary: Chest x-ray is clear (4) COPD (chronic obstructive pulmonary disease) Is this a current diagnosis for this admission?: Yes Summary: Continues to PRN nebulizer treatments (5) Multiple sclerosis Is this a current diagnosis for this admission?: Yes Summary: Currently all stable - Additional Information Discharge Diet: Diabetic Discharge Activity: Activity As Tolerated Prescriptions: Cephalexin Monohydrate [Keflex 500 mg Capsule] 500 mg PO TID #21 capsule Levalbuterol HCl [Xopenex Neb 1.25 mg/3 ml Ampul] 1.25 mg NEB RTQ4 PRN #120 vial.neb PRN Reason: Metoprolol Tartrate [Lopressor 25 mg Tablet] 12.5 mg PO Q12 #60 tablet Home Medications: Albuterol Sulfate [Ventolin 0.083% Neb 2.5 mg/3 mL Ampul] 2.5 mg NEB Q6HP PRN 10/08/18 Clopidogrel Bisulfate [Plavix 75 mg Tablet] 75 mg PO DAILY 10/08/18 Methimazole [Northyx] 10 mg PO DAILY 10/08/18 Cephalexin Monohydrate [Keflex 500 mg Capsule] 500 mg PO TID #21 capsule 10/12/18 Levalbuterol HCl [Xopenex Neb 1.25 mg/3 ml Ampul] 1.25 mg NEB RTQ4 PRN #120 vial.neb 10/12/18 Metoprolol Tartrate [Lopressor 25 mg Tablet] 12.5 mg PO Q12 #60 tablet 10/12/18 History of Present Illness History of Present Illness: ABDELRAHMAN ESPAÑA is a 72 year old male Patient with admitting for the respiratory failure pneumonia with the multiple other comorbidity including the status post tracheostomy history of the A. fib hypertension's and Hyperthyroidism And was started on IV antibiotic nebulizer treatments Hospital Course Hospital Course: This is a 72-year-old male with a history of the chronic respiratory failure and a chronic vent history of the COPD history of the hyperthyroidism history of the chronic A. fib history of the status post tracheostomy multiple other medical problems came to the emergency department with the difficulty in breathing respiratory failure and pneumonia She was admitting in the hospital and adjust the vent setting and started on IV antibiotics His white count is getting better patient is remain afebrile patient's tracheal secretion is also improving Patient is expressed to go home and Dr. Davila was also consulted have ABG was done all stable Recent chest x-ray is also clear Patient's at this point discussed with the Linda wants to take the patient home with home health and do not want to send to the rehab facilities We arrange the home health and follow-up pulmonary in 1 week he otherwise other medical problem was stable With the very extensively regarding the patient's current conditions Physical Exam Vital Signs: Temp Pulse Resp BP Pulse Ox 97.3 F 82 16 130/63 H 100 10/12/18 11:07 10/12/18 11:07 10/12/18 11:07 10/12/18 11:07 10/12/18 11:07 Pulse Oximeter Continuous Start: 10/08/18 01:33 Freq: RTQ4 Status: Discharge Protocol: Document 10/12/18 08:29 HCR (Rec: 10/12/18 11:29 HCR [id number]) Pulse Oximetry Assessment Oxygen Saturation (92-100) 96 Oxygen Delivery Method Trach Collar Fraction of Inspired Oxygen (FIO2) 35 Equipment Usage Equipment in Use Continuous SpO2 Machine # 2 Intake & Output 10/11/18 10/12/18 10/13/18 06:59 06:59 06:59 Intake Total 670 1544 Output Total 500 150 Balance 170 1394 Weight 72.9 kg 71.1 kg General appearance: PRESENT: no acute distress, well-developed, well-nourished Head exam: PRESENT: atraumatic, normocephalic Eye exam: PRESENT: conjunctiva pink, EOMI, PERRLA. ABSENT: scleral icterus Ear exam: PRESENT: normal external ear exam Mouth exam: PRESENT: moist, tongue midline Neck exam: PRESENT: full ROM. ABSENT: carotid bruit, JVD, lymphadenopathy, thyromegaly Additional comments: Tracheostomy status intact Respiratory exam: PRESENT: clear to auscultation deepa Cardiovascular exam: PRESENT: RRR. ABSENT: diastolic murmur, rubs, systolic murmur Vascular exam: PRESENT: normal capillary refill GI/Abdominal exam: PRESENT: normal bowel sounds, soft. ABSENT: distended, guarding, mass, organolmegaly, rebound, tenderness Rectal exam: PRESENT: deferred Neurological exam: PRESENT: alert, awake, oriented to person, oriented to place, oriented to time, oriented to situation. ABSENT: motor sensory deficit Psychiatric exam: PRESENT: appropriate affect, normal mood. ABSENT: homicidal ideation, suicidal ideation Skin exam: PRESENT: dry, intact, warm. ABSENT: cyanosis, rash Results Laboratory Results: 10/11/18 05:44 10/12/18 06:21 10/12/18 06:21 Sodium 141.9 Potassium 3.5 L Chloride 111 H Carbon Dioxide 23 Anion Gap 8 BUN 7 Creatinine 0.89 Est GFR ( Amer) > 60 Est GFR (Non-Af Amer) > 60 Glucose 91 Calcium 9.1 10/07/18 10/07/18 10/07/18 22:38 22:38 22:38 Creatine Kinase 43 L CK-MB (CK-2) 0.36 Troponin I < 0.012 Cancelled 10/08/18 03:14 Creatine Kinase CK-MB (CK-2) Troponin I < 0.012 Impressions: Chest X-Ray 10/11/18 00:00 IMPRESSION: NO ACUTE RADIOGRAPHIC FINDING IN THE CHEST. Qualifiers - * PATIENT BEING DISCHARGED WITH ANY OF THE FOLLOWING DIAGNOSIS: No VTE patient discharged on overlapping Therapy?: Yes Acute Heart Failure - Is this a Heart Failure Patient?: No Plan Time Spent: Greater than 30 Minutes - Follow outpatients pulmonary in [address] Dvaila Follow in office 1 week Is follow ENT Dr. Wong for continues trach management
== END 2018-10-12 11:45 | disposition home health service (06) | DRG 193 ==
LOC: ER 21:18 → EH 10-08 01:45 → 3S 10-08 04:56
PROVIDERS: ADMIT Family Medicine; ATTEND Family Medicine
DX: J18.1 Lobar pneumonia, unspecified organism (principal); J96.21 Acute and chronic respiratory failure with hypoxia; J44.0 Chronic obstructive pulmonary disease with (acute) lower respiratory infection; N17.9 Acute kidney failure, unspecified; E78.5 Hyperlipidemia, unspecified; I10 Essential (primary) hypertension; Z86.711 Personal history of pulmonary embolism; E11.9 Type 2 diabetes mellitus without complications; Z93.0 Tracheostomy status; Z87.442 Personal history of urinary calculi; E86.0 Dehydration; G35 Multiple sclerosis; D64.9 Anemia, unspecified; I48.91 Unspecified atrial fibrillation; E05.90 Thyrotoxicosis, unspecified without thyrotoxic crisis or storm
CPT/HCPCS: 36415; 36600; 71045; 80048; 80053; 81001; 82550; 82553; 82803; 82962; 83036; 83605; 84484; 85025; 85610; 87040; 87086; 93005; 93010; 94002; 94003; 94640; 94762; 96374; 96375; 99285; J0456; J0696; J1650; J2270; J2405; J2543; J3490; J7030; J7060; J7620

== ENCOUNTER 2019-03-05 20:18 | Emergency (ER) | payer MEDICARE ==
[2019-03-05 20:30] VITALS: BP 145/74
--- NOTE | 2019-03-05 21:15 | ER Document Report ---
HPI - HPI Patient complains to provider of: inner cannula trachea replacement Time Seen by Provider: 03/05/19 20:47 Onset: This afternoon Onset/Duration: Sudden Quality of pain: No pain Pain Level: Denies Context: Patient presents to emergency department with his granddaughter for request of replacement of his inner cannula of his trachea. Reports he was trying to clean it and it bitten and he broke it. He denies difficulty breathing. Denies cough. No other complaints. Patient has had a trach for 17 years. He reports they were unable to intubate him during an emergency so they had to put the trach in Associated Symptoms: None Exacerbated by: Denies Relieved by: Denies Similar symptoms previously: No Recently seen / treated by doctor: No - REPRODUCTIVE Reproductive: DENIES: : Past Medical History - General Information source: Patient, Relative - Social History Smoking Status: Never Smoker Cigarette use (# per day): No Frequency of alcohol use: None Drug Abuse: None Lives with: Family Family History: Reviewed & Not Pertinent Patient has suicidal ideation: No Patient has homicidal ideation: No - Past Medical History Cardiac Medical History: Reports: Hx Hypercholesterolemia, Hx Hypertension, Hx Pulmonary Embolism Pulmonary Medical History: Reports: Hx COPD Endocrine Medical History: Reports: Hx Diabetes Mellitus Type 2 Renal/ Medical History: Reports: Hx Kidney Stones. Denies: Hx Peritoneal Dialysis Past Surgical History: Reports: Hx Kidney (Renal Surgery), Hx Orthopedic Surgery, Hx Thyroid Surgery - thyroidectomy, Other - Tracheostomy - Immunizations Hx Diphtheria, Pertussis, Tetanus Vaccination: Yes Hx Pneumococcal Vaccination: 03/27/13 Vertical Provider Document - CONSTITUTIONAL Agree With Documented VS: Yes Exam Limitations: No Limitations General Appearance: WD/WN, No Apparent Distress - INFECTION CONTROL TRAVEL OUTSIDE OF THE [place] IN LAST 30 DAYS: No - HEENT HEENT: Atraumatic, Normocephalic - NECK Neck: Supple, Other - Trach in place patient able to talk by closing off the trach no distress respiratory rate even unlabored no retractions - RESPIRATORY Respiratory: Breath Sounds Normal, No Respiratory Distress - CARDIOVASCULAR Cardiovascular: Regular Rate - MUSCULOSKELETAL/EXTREMETIES Musculoskeletal/Extremeties: NOAH CORBIN - NEURO Level of Consciousness: Awake, Alert, Appropriate Motor/Sensory: No Motor Deficit - DERM Integumentary: Warm, Dry Course - Re-evaluation Re-evalutation: 03/05/19 21:16 Nuclear Operations Specialist Simeon was contacted for trach replacement he brought the patient 2 trachs., one for now and one for back up. The patient replaced the inner cannula himself. Patient and family member very appreciative. No other services were requested. Patient was instructed to follow-up with his primary care provider within 1 week. Dictation of this chart was performed using voice recognition software; therefore, there may be some unintended grammatical errors. - Vital Signs Vital signs: Temp Pulse Resp BP Pulse Ox 97.9 F 77 18 145/74 H 92 03/05/19 20:48 03/05/19 20:25 03/05/19 20:48 03/05/19 20:25 03/05/19 20:48 Discharge - Discharge Clinical Impression: inner trachea replacement Condition: Stable Disposition: HOME, SELF-CARE Additional Instructions: *You have been treated for replacement of the inner cannula of your trachea *Follow up with a primary care provider within 1 week for recheck *Return to ED for worsening condition, changes, needs, difficulty breathing concerns Forms: Elevated Blood Pressure Referrals: AMINATA ROMAN MD [Primary Care Provider] - Follow up in 1 week
== END 2019-03-05 21:30 | disposition home or self-care (01) ==
LOC: ER 20:18
DX: J95.09 Other tracheostomy complication (principal); I10 Essential (primary) hypertension; J44.9 Chronic obstructive pulmonary disease, unspecified; E11.9 Type 2 diabetes mellitus without complications
CPT/HCPCS: 99283